=== PATIENT | female | born 1960 | race Caucasian/White ===

== ENCOUNTER 2016-08-23 17:11 | Emergency (ER) | payer BC ==
[~2016-08-23] VITALS: Ht 160 cm; Wt 105.2 kg
[2016-08-23 18:05] LABS: BASO # 0.1 x10^3/uL (0.0-0.2); BASO % 1 % (0-3); EOS % 2 % (0-3); HEMATOCRIT 37.8 % (36.0-47.0); HEMOGLOBIN 12.5 g/dL (12.0-15.5); LYMPH # 2.7 x10^3/uL (1.0-4.8); LYMPH % 27 % (24-48); MEAN CORPUSCULAR HEMOGLOBIN 30 pg (25-35); MEAN CORPUSCULAR HGB CONC 33 g/dL (31-37); MEAN CORPUSCULAR VOLUME 91 fL (79-100); MONO % 8 % (0-9); NEUT % 63 % (31-73); PLATELET COUNT 231 x10^3/uL (140-400); RED BLOOD COUNT 4.17 x10^6/uL (3.50-5.40); RED CELL DISTRIBUTION WIDTH 13.6 % (11.5-14.5); WHITE BLOOD COUNT 9.9 x10^3/uL (4.0-11.0)
[2016-08-23 18:18] LABS: CALCIUM 8.6 mg/dL (8.5-10.1); CREATININE 0.5 mg/dL (0.6-1.0); GFR 128.6; POTASSIUM 4.2 mmol/L (3.5-5.1)
[2016-08-23 18:25] LABS: ALBUMIN 3.4 g/dL (3.4-5.0); DIRECT BILIRUBIN 0.1 mg/dL (0.0-0.2); MAGNESIUM 1.9 mg/dL (1.8-2.4); TOTAL BILIRUBIN 0.3 mg/dL (0.2-1.0); TOTAL PROTEIN 6.7 g/dL (6.4-8.2)
[2016-08-23 18:30] LABS: CKMB MASS 1.2 ng/mL (0.0-3.6)
[2016-08-23 19:22] VITALS: BP 123/71
--- NOTE | 2016-08-23 19:23 | PHYS DOC ---
Past Medical History Past Medical History: Migraines Additional Past Medical Histor: Sleep apnea, vertigo Additional Past Surgical Histo: L Foot Lisfranc. Bilateral knee meniscus, tummy tuck, breast implants Alcohol Use: Occasionally Drug Use: None Adult General Chief Complaint Chief Complaint: SHORTNESS OF BREATH HPI HPI Patient is a 56 year old female who states for about 2 weeks she has noticed some exertional dyspnea and also has had some "swelling" of her hands and feet, also her abdomen feels bloated and seems to be larger. Patient has noticed the swelling when at the pool and also when she was walking up a big [place] at [place]. She's had no fever or chills, no cough, no chest pain. She's never had problems with swelling before, has never taken a diuretic. Patient has no chronic medical problems. She does state she has gained about 15 pounds over the last few months. 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 Review of Systems Review of Systems Constitutional: Denies fever or chills [] Eyes: Denies change in visual acuity, redness, or eye pain [] HENT: Denies nasal congestion or sore throat [] Respiratory: Denies cough or shortness of breath [] Cardiovascular: Denies chest pain GI: Denies abdominal pain, nausea, vomiting, bloody stools or diarrhea [] : Denies dysuria or hematuria [] Musculoskeletal: Denies back pain or joint pain [] Integument: Denies rash or skin lesions [] Neurologic: Denies headache, focal weakness or sensory changes [] Allergies Allergies Allergies Coded Allergies Type Severity Reaction Last Updated Verified No Known Drug Allergies 08/23/16 No Physical Exam Physical Exam Constitutional: Well developed, well nourished, no acute distress, non-toxic appearance. Alert, mentating normally, no dyspnea. HENT: Normocephalic, atraumatic, bilateral external ears normal, nose normal. [] Eyes: conjunctiva normal, no discharge. [] Neck: Normal range of motion, no stridor. [] Cardiovascular:Heart rate regular rhythm, no murmur [] Lungs & Thorax: Bilateral breath sounds clear to auscultation [] Abdomen: Obese, nondistended, Bowel sounds normal, soft, no tenderness, no masses, no pulsatile masses. [] Skin: Warm, dry, no erythema, no rash. [] Extremities: No tenderness, no cyanosis, no clubbing, ROM intact, no edema. There may be slight puffiness of the hands and feet but there is no pitting edema whatsoever. Neurologic: Alert and oriented X 3, normal motor function, normal sensory function, no focal deficits noted. Current Patient Data Vital Signs Vital Signs Date Time Temp Pulse Resp B/P (MAP) Pulse Ox O2 Delivery O2 Flow Rate FiO2 08/23/16 19:22 81 123/71 (88) 97 Room Air 08/23/16 18:22 21 08/23/16 17:17 98.8 98.0 98.8 Lab Values Laboratory Tests Test 08/23/16 17:55 White Blood Count 9.9 x10^3/uL (4.0-11.0) Red Blood Count 4.17 x10^6/uL (3.50-5.40) Hemoglobin 12.5 g/dL (12.0-15.5) Hematocrit 37.8 % (36.0-47.0) Mean Corpuscular Volume 91 fL (79-100) Mean Corpuscular Hemoglobin 30 pg (25-35) Mean Corpuscular Hemoglobin Concent 33 g/dL (31-37) Red Cell Distribution Width 13.6 % (11.5-14.5) Platelet Count 231 x10^3/uL (140-400) Neutrophils (%) (Auto) 63 % (31-73) Lymphocytes (%) (Auto) 27 % (24-48) Monocytes (%) (Auto) 8 % (0-9) Eosinophils (%) (Auto) 2 % (0-3) Basophils (%) (Auto) 1 % (0-3) Neutrophils # (Auto) 6.2 x10^3uL (1.8-7.7) Lymphocytes # (Auto) 2.7 x10^3/uL (1.0-4.8) Monocytes # (Auto) 0.7 x10^3/uL (0.0-1.1) Eosinophils # (Auto) 0.2 x10^3/uL (0.0-0.7) Basophils # (Auto) 0.1 x10^3/uL (0.0-0.2) D-Dimer (Mere) 0.31 ug/mlFEU (0.00-0.50) Sodium Level 143 mmol/L (136-145) Potassium Level 4.2 mmol/L (3.5-5.1) Chloride Level 106 mmol/L (98-107) Carbon Dioxide Level 26 mmol/L (21-32) Anion Gap 11 (6-14) Blood Urea Nitrogen 13 mg/dL (7-20) Creatinine 0.5 mg/dL (0.6-1.0) L Estimated GFR (Cockcroft-Gault) 128.6 Glucose Level 78 mg/dL (70-99) Calcium Level 8.6 mg/dL (8.5-10.1) Magnesium Level 1.9 mg/dL (1.8-2.4) Total Bilirubin 0.3 mg/dL (0.2-1.0) Direct Bilirubin 0.1 mg/dL (0.0-0.2) Aspartate Amino Transferase (AST) 21 U/L (15-37) Alanine Aminotransferase (ALT) 29 U/L (14-59) Alkaline Phosphatase 131 U/L (46-116) H Creatine Kinase 131 U/L (26-192) Creatine Kinase MB (Mass) 1.2 ng/mL (0.0-3.6) Creatine Kinase MB Relative Index 0.9 % (0-4) Troponin I Quantitative < 0.017 ng/mL (0.000-0.055) SD-Udt-M-Type Natriuretic Peptide 43 pg/mL (0-124) Total Protein 6.7 g/dL (6.4-8.2) Albumin 3.4 g/dL (3.4-5.0) Laboratory Tests 08/23/16 17:55 Laboratory Tests 08/23/16 17:55 EKG EKG 12-lead EKG read by me. Sinus rhythm. Heart rate 90. There are no acute ST or T wave changes indicative of ischemia or infarction. No STEMI. 1724[] Radiology/Procedures Radiology/Procedures Two-view chest x-ray read by me. Heart size is normal. Lung pierce are clear. No pulmonary edema. [] Course & Med Decision Making Course & Med Decision Making Pertinent Labs and Imaging studies reviewed. (See chart for details) 56-year-old email the concern of "swelling" and also believes her abdomen is somewhat swollen or bloated, although she does admit to a recent 15 pound weight gain. Her exam reveals that her hands and feet may be a bit puffy but there is no pitting edema. Labs, EKG, chest x-ray unremarkable. I reassured the patient and we discussed weight loss, follow-up with her doctor if problems continue, see instructions for plan. [] Dragon Disclaimer Dragon Disclaimer This electronic medical record was generated, in whole or in part, using a voice recognition dictation system. Departure Departure Impression: Primary Impression: Dyspnea Disposition: HOME, SELF-CARE Condition: STABLE Referrals: LESLEY MONDRAGON MD (PCP) Additional Instructions: As we discussed, labs and x-ray were normal today. This is reassuring and I don' t believe you need any further testing at this time. As we discussed, weight loss might help many of your symptoms. Be sure to follow-up with your physician if you continue to have symptoms or problems. NADYA RHOADES MD Aug 23, 2016 19:23
--- NOTE | 2016-08-24 06:56 | EKG ---
[facility] [address] [place] [address] Test Date: 2016-08-23 Test Time: 17:24:18 Pat Name: AMANDA CHUNG Department: Room: Gender: F Change Of Address Clerk: : 1960 Requested By: NADYA RHOADES Order Number: [id number] Reading MD: Measurements Intervals [place] Rate: 90 P: 50 DC: 144 QRS: -34 QRSD: 78 T: 39 QT: 326 QTc: 402 Interpretive Statements SINUS RHYTHM ABNORMAL LEFT AXIS DEVIATION R-S TRANSITION ZONE IN V LEADS DISPLACED TO THE LEFT INCOMPLETE RIGHT BUNDLE BRANCH BLOCK QRS(T) CONTOUR ABNORMALITY CONSISTENT WITH INFERIOR INFARCT PROBABLY OLD ABNORMAL ECG RI6.01 No previous ECG available for comparison
--- NOTE | 2016-08-24 08:16 | RAD ---
Indication change in mental status. Suspect CVA. Protocol study. PA and lateral views of the chest were obtained. No prior imaging of the chest is available. The heart and pulmonary vessels appear normal. The lungs are clear. There is no pleural fluid or pneumothorax. Visualized bony structures appear grossly intact. IMPRESSION: No acute or focal process is seen in the chest
== END 2016-08-23 19:33 | disposition home or self-care (01) ==
LOC: ER 17:11
DX: R06.00 Dyspnea, unspecified (principal); G43.909 Migraine, unspecified, not intractable, without status migrainosus; G47.30 Sleep apnea, unspecified; Z98.82 Breast implant status
CPT/HCPCS: 36415; 71020; 80048; 80076; 82553; 83735; 83880; 84484; 85027; 85379; 93005; 99285-25

== ENCOUNTER → 2016-09-05 | Outpatient (CLI) | payer BC ==
[2016-08-23 19:22] VITALS: BP 123/71
[2016-09-05 10:58] LABS: CHOLESTEROL/HDL RATIO 5.1
[2016-09-05 11:05] LABS: FREE T4 0.74 ng/dL (0.76-1.46)
== END | disposition home or self-care (01) ==
LOC: LAB 10:25
PROVIDERS: ATTEND Internal Medicine
DX: E78.00 Pure hypercholesterolemia, unspecified (principal); R63.5 Abnormal weight gain
CPT/HCPCS: 36415; 80061; 84439; 84443

== ENCOUNTER → 2016-09-07 | Outpatient (CLI) | payer BC ==
[2016-08-23 19:22] VITALS: BP 123/71
--- NOTE | 2016-09-07 18:23 | PCVCIMAG ---
APPROVED REPORT Study performed: 09/07/2016 15:58:45 EXAM: Comprehensive 2D, Doppler, and color-flow Echocardiogram Patient Location: Echo lab Status: routine Other Information Study Quality: Fair Indications Abnormal ECG Dyspnea 2D Dimensions IVSd: 8.86 (7-11mm)LVOT Diam: 19.68 (18-24mm) LVDd: 41.43 mm PWd: 9.07 (7-11mm)Ascending Ao: 32.79 (22-36mm) LVDs: 20.99 (25-40mm) Left Atrium: 35.02 (27-40mm) Aortic Root: 25.40 mm LV Single Plane 4CH: 63.33 % Correia's LVEF: 81.09 % Biplane EF: 63.0 % Volumes Left Atrial Volume (Systole) Single Plane 4CH: 32.73 mLSingle Plane 2CH: 24.31 mL Biplane LA Volume: 29.00 mLLA ESV Index: 14.00 mL/m2 Aortic Valve AoV Peak Ernesto.: 1.64 m/s AO Peak Gr.: 10.73 mmHgLVOT Max P.71 mmHg LVOT Max V: 1.09 m/s [place] Vmax: 2.03 cm2 Mitral Valve E/A Ratio: 1.2 MV Decel. Time: 81.77 ms MV E Max Ernesto.: 0.87 m/s MV A Ernesto.: 0.74 m/s IVRT: 72.66 ms TDI E/Lateral E': 21.75E/Medial E': 17.40 Medial E' Ernesto.: 0.05 m/s Lateral E' Ernesto.: 0.04 m/s Pulmonary Valve PV Peak Ernesto.: 18.00 m/sPV Peak Gr.: 5.09 mmHg Pulmonary Vein P Vein S: 0.77 m/sP Vein A: 0.30 m/s P Vein D: 0.33 m/sP Vein A Dur.: 103.8 msec P Vein S/D Ratio: 2.33 Tricuspid Valve TR Peak Ernesto.: 1.66 m/s TR Peak Gr.: 11.07 mmHg TV Vmax: 0.57 m/sPA Pressure: 18.00 mmHg Left Ventricle The left ventricle is normal size. There is normal LV segmental wall motion. There is normal left ventricular wall thickness. Left ventricular systolic function is normal. The left ventricular ejection fraction is within the normal range. LVEF is 60-65%. The left ventricular diastolic function is normal. Right Ventricle Right ventricle is grossly normal in size.The RV free wall is mildly thickened The right ventricular systolic function is normal. Atria The left atrium size is normal. The right atrium size is normal. Aortic Valve Aortic valve is probably trileaflet . No aortic regurgitation is present. There is no aortic valvular stenosis. Mitral Valve The mitral valve is normal in structure. There is no mitral valve regurgitation noted. No evidence of mitral valve stenosis. Tricuspid Valve The tricuspid valve is normal in structure. There is no tricuspid valve regurgitation noted. Pulmonic Valve The pulmonary valve is normal in structure. There is no pulmonic valvular regurgitation. Great Vessels The aortic root is normal in size. The ascending aorta is normal in size. IVC is normal in size and collapses with >50% inspiration Pericardium There is no pericardial effusion. There is no pleural effusion. <Conclusion> There is normal left ventricular wall thickness. Left ventricular systolic function is normal. The left ventricular ejection fraction is within the normal range. LVEF is 60-65%. The left ventricular diastolic function is normal. Right ventricle is grossly normal in size.The RV free wall is mildly thickened The left atrium size is normal. Aortic valve is probably trileaflet . There is no aortic valvular stenosis. There is no mitral valve regurgitation noted. There is no pericardial effusion. There is no tricuspid valve regurgitation noted.
== END | disposition home or self-care (01) ==
LOC: PCVCIMAG 16:20
PROVIDERS: ATTEND Internal Medicine Cardiovascular Disease
DX: R94.31 Abnormal electrocardiogram [ECG] [EKG] (principal); E78.00 Pure hypercholesterolemia, unspecified; I47.2 Ventricular tachycardia; K21.9 Gastro-esophageal reflux disease without esophagitis; F90.9 Attention-deficit hyperactivity disorder, unspecified type; Z82.49 Family history of ischemic heart disease and other diseases of the circulatory system; Z72.0 Tobacco use
CPT/HCPCS: 80061; 93005; 93306; G0463

== ENCOUNTER → 2016-10-26 | Outpatient (CLI) | payer BC ==
--- NOTE | 2016-10-26 17:21 | PCVCIMAG ---
APPROVED REPORT Exam: Stress Echocardiogram Indication: Hyperlipidemia, Hypertension, Dyspnea Stress Nurse: Lashon Pepe RN Status: routine Ht: 5 ft 3 in Rhythm: NSR Procedure The patient underwent an Exercise Stress Test using the Arik Protocol. Blood pressure, heart rate, and EKG were monitored. An Echocardiogram was performed by telemetry technician in four stages in quad fashion. At peak stress, four selected images were obtained and placed side by side with resting images for comparison. Stress Test Details Stress Test: Exercise stress testing was performed using a Arik protocol. HR Resting HR: 73 bpmMax Heart Rate (APMHR): 166 bpm Max HR Achieved: 151 bpmTarget HR (85% APMHR): 141 bpm % of APMHR: 90 HR response to stress: Normal HR response to stress BP Resting BP: 110/70 mmHg Max BP: 164/70 mmHg ECG Resting ECG: Sinus Rhythm Stress ECG: Sinus Rhythm Clinical Reason for Termination: Maximal effort Exercise duration: 7 min 43 sec Highest Stage Achieved: Stage 3: 3.4 mph at 14% grade. Exercise capacity: 10.10 METs Overall Exercise Capacity for Age: Good Pre-Stress Echo The resting Echocardiogram showed normal left ventricular contractility with an estimated Ejection Fraction of about 55-60%. Normal wall motion in all segments on baseline images. Post-Stress Echo The stress Echocardiogram showed normal left ventricular contractility with an estimated Ejection Fraction of about 60-65%. Normal augmentation of wall motion in all segments on post stress images. Clinical No clinical or ECG evidence for ischemia. Conclusion Clinical Response: Non-ischemic Exercise Capacity: Average Stress ECG Response: Non-ischemic Stress Echo Images: Non-ischemic The left ventricle is normal in size and wall thickness in both the rest and stress images. Other Information Study Quality: Good <Conclusion> The left ventricle is normal in size and wall thickness in both the rest and stress images.
== END | disposition home or self-care (01) ==
LOC: PCVCIMAG 14:45
PROVIDERS: ATTEND Internal Medicine Cardiovascular Disease
DX: I10 Essential (primary) hypertension (principal); E78.5 Hyperlipidemia, unspecified; R93.1 Abnormal findings on diagnostic imaging of heart and coronary circulation; I47.2 Ventricular tachycardia; Z82.49 Family history of ischemic heart disease and other diseases of the circulatory system
CPT/HCPCS: 93325; 93351

== ENCOUNTER → 2017-05-29 | Outpatient (CLI) | payer OTHER ==
[2017-05-29] MEDS: GADOBUTROL 10 MMOL/10 ML VIAL IV (14:11)
== END | disposition home or self-care (01) ==
LOC: KCIC MRI 12:52
DX: H74.8X3 Other specified disorders of middle ear and mastoid, bilateral (principal)
CPT/HCPCS: 70553; 93880; A9585

== ENCOUNTER → 2018-09-16 | Outpatient (CLI) | payer OTHER ==
[~2018-09-16] MED LIST: ATOR10TA60 PO; BYSTOLIC5 MG PO; CLON0.5T11 PO; DEXT30TA2 PO; LEXAPRO20 MG PO; OMEP20TA8 PO
--- NOTE | 2018-09-16 15:03 | PCVCIMAG ---
APPROVED REPORT Study performed: 09/16/2018 10:52:26 Exam: Stress Echocardiogram Indication: pre-op clearance, abn EKG, htn, hlp, fam hx CAD Patient Location: Echo lab Stress Nurse: Lashon Pepe RN Status: routine Ht: 5 ft 3 in HR: 96 bpm BP: 144/100 mmHg Rhythm: NSR Procedure The patient underwent an Exercise Stress Test using the Arik Protocol. Blood pressure, heart rate, and EKG were monitored. An Echocardiogram was performed by hydroelectric plant technician in four stages in quad fashion. At peak stress, four selected images were obtained and placed side by side with resting images for comparison. Stress Test Details Stress Test: Exercise stress testing was performed using a Arik protocol. HR Resting HR: 96 bpmMax Heart Rate (APMHR): 164 bpm Max HR Achieved: 151 bpmTarget HR (85% APMHR): 139 bpm % of APMHR: 92 Recovery HR: 95 bpm HR response to stress: Normal HR response to stress BP Resting BP: 144/100 mmHg Max BP: 178/88 mmHg Recovery BP: 148/86 mmHg BP response to stress: Normal blood pressure response to stress. ECG Resting ECG: Sinus Rhythm, nonspecific ST-T abnormalities Stress ECG: Sinus Rhythm, nonspecific ST-T abnormalities ST Change: Normal Arrhythmia: None Recovery ECG: Sinus Rhythm, nonspecific ST-T abnormalities Recovery ST Change: Normal Recovery Arrhythmia: None Clinical Reason for Termination: Maximal effort, Dyspnea Stress Symptoms: Dyspnea Exercise duration: 6 min sec Highest Stage Achieved: Stage 2: 2.5 mph at 12% grade. Exercise capacity: 7 METs Overall Exercise Capacity for Age: Normal Scale: Sedentary Angina Score: None Pre-Stress Echo The resting Echocardiogram showed normal left ventricular contractility with an estimated Ejection Fraction of about >55%. Normal wall motion in all segments on baseline images. Post-Stress Echo The stress Echocardiogram showed normal left ventricular contractility with an estimated Ejection Fraction of about 65%. Normal augmentation of wall motion in all segments on post stress images. Clinical No clinical or ECG evidence for ischemia. Conclusion Clinical Response: Non-ischemic Exercise Capacity: Average Stress ECG Response: Non-ischemic Stress Echo Images: Non-ischemic The left ventricle is normal in size and wall thickness in both the rest and stress images. Other Information Study Quality: Adequate <Conclusion> The left ventricle is normal in size and wall thickness in both the rest and stress images.
== END | disposition home or self-care (01) ==
LOC: PCVCIMAG 10:52
PROVIDERS: ATTEND Internal Medicine Cardiovascular Disease
DX: Z01.818 Encounter for other preprocedural examination (principal); I10 Essential (primary) hypertension; E78.5 Hyperlipidemia, unspecified; I47.2 Ventricular tachycardia; E78.00 Pure hypercholesterolemia, unspecified; F41.8 Other specified anxiety disorders; Z82.49 Family history of ischemic heart disease and other diseases of the circulatory system; Z87.891 Personal history of nicotine dependence
CPT/HCPCS: 93325; 93351

== ENCOUNTER → 2018-10-17 | Outpatient (CLI) | payer OTHER ==
[~2018-10-17] MED LIST changes: +CLON-77 PO; -CLON0.5T11 PO
== END | disposition home or self-care (01) ==
LOC: SPEC 11:24
PROVIDERS: ATTEND Nurse Practitioner Women's Health
DX: N95.0 Postmenopausal bleeding (principal)
CPT/HCPCS: 88175

== ENCOUNTER → 2018-10-24 | Outpatient (CLI) | payer OTHER ==
--- NOTE | 2018-10-24 17:25 | RAD ---
Examination: Ultrasound pelvis HISTORY: History of post menopausal bleeding COMPARISON: None available. Findings: The uterus measures 7.1 x 5.0 x 3.4 cm . The endometrium measures 4 mm in thickness. The right and left ovaries could not be visualized. The uterus appears retroverted. Few nabothian cysts identified.There is a 2.5 cm echogenicity identified in the fundus likely fibroid. IMPRESSION: 1. 2.5 cm fundal fibroid identified. 2. Right and left ovaries are not visualized. Electronically signed by: Issac Gerber MD (10/24/2018 5:23 PM) [place] [id number]
== END | disposition home or self-care (01) ==
LOC: US 15:07
PROVIDERS: ATTEND Nurse Practitioner Women's Health
DX: N85.4 Malposition of uterus (principal); D25.9 Leiomyoma of uterus, unspecified; N95.0 Postmenopausal bleeding
CPT/HCPCS: 76830; 76856

== ENCOUNTER → 2019-11-03 | Outpatient (CLI) | payer OTHER ==
[~2019-11-03] MED LIST changes: +CHOL100017 PO; +CRESTOR5 MG PO; +PARO20TA99 PO
[2019-11-03 09:28] LABS: BASO % 1 % (0-3); EOS # 0.1 x10^3/uL (0.0-0.7); EOS % 2 % (0-3); HEMATOCRIT 40.4 % (36.0-47.0); HEMOGLOBIN 13.6 g/dL (12.0-15.5); LYMPH # 2.3 x10^3/uL (1.0-4.8); LYMPH % 37 % (24-48); MEAN CORPUSCULAR HEMOGLOBIN 30 pg (25-35); MEAN CORPUSCULAR HGB CONC 34 g/dL (31-37); MEAN CORPUSCULAR VOLUME 90 fL (79-100); MONO # 0.5 x10^3/uL (0.0-1.1); MONO % 8 % (0-9); NEUT # 3.2 x10^3/uL (1.8-7.7); NEUT % 53 % (31-73); PLATELET COUNT 218 x10^3/uL (140-400); RED BLOOD COUNT 4.51 x10^6/uL (3.50-5.40); RED CELL DISTRIBUTION WIDTH 13.4 % (11.5-14.5); WHITE BLOOD COUNT 6.1 x10^3/uL (4.0-11.0)
[2019-11-03 09:45] LABS: ALBUMIN 3.6 g/dL (3.4-5.0); C-REACTIVE PROTEIN 3.6 mg/L (0-3.3); CALCIUM 9.1 mg/dL (8.5-10.1); CREATININE 0.7 mg/dL (0.6-1.0); GFR 86.2; POTASSIUM 4.3 mmol/L (3.5-5.1); PROTHROMBIN TIME PATIENT 12.3 SEC (11.7-14.0)
--- NOTE | 2019-11-03 16:03 | RAD ---
EXAM: Chest, 2 views. HISTORY: Preoperative evaluation. COMPARISON: None. FINDINGS: 2 views of the chest are obtained. There is no infiltrate, pleural effusion or pneumothorax. The heart is normal in size. IMPRESSION: No acute pulmonary finding. Electronically signed by: Es Chau MD (11/03/2019 4:00 PM) [id number]
[2019-11-04 01:08] LABS: HEMOGLOBIN A1C 5.5 % (4.8-5.6)
== END | disposition home or self-care (01) ==
LOC: SURGPAT 12:51
PROVIDERS: ATTEND Orthopaedic Surgery
DX: Z01.812 Encounter for preprocedural laboratory examination (principal); M17.12 Unilateral primary osteoarthritis, left knee; Z87.891 Personal history of nicotine dependence; Z96.652 Presence of left artificial knee joint
CPT/HCPCS: 36415; 71046; 80048; 82040; 82306; 83036; 85025; 85610; 85730; 86140; 87641

== ENCOUNTER → 2019-11-21 | Outpatient (CLI) | payer OTHER | LOC: LAB 14:23 | PROVIDERS: ATTEND Orthopaedic Surgery | DX: Z01.812 Encounter for preprocedural laboratory examination (principal); Z20.828 Contact with and (suspected) exposure to other viral communicable diseases | CPT/HCPCS: U0003-CS ==

== ENCOUNTER 2019-11-25 06:10 | Observation (INO) | payer OTHER ==
[~2019-11-25] VITALS: Ht 157.5 cm; Wt 112.0 kg
[2019-11-25] VITALS (10 sets, daily range): BP systolic 90–154; BP diastolic 49–81
[~2019-11-25 06:10] MED LIST changes: +ACETAMINOPHEN 500 MG TABLET PO ONE; +CELECOXIB 100 MG CAPSULE. PO ONE; +MORPHINE SULFATE 5 MG, KETOROLAC 30MG VIAL 30 MG, ROPIVacaine 0.5% PF 60 ML, EPINEPHrin... INT ART ONE; +TRANEXAMIC ACID 1,000 MG in IV NS 50ML -- 1ST BAG INJ ONE
[2019-11-25] MEDS ORDERED: LIDOCAINE 2% PF 5 ML VIAL. ONE (06:56)
[2019-11-25] MEDS ORDERED: DEXAMETHASONE SOD PHOS 4 MG/ML VIAL ONE (06:56)
[2019-11-25] MEDS ORDERED: ONDANSETRON PF 4 MG/2 ML VIAL. ONE (06:56)
[2019-11-25] MEDS ORDERED: PROPOFOL 10 MG/ML (20ML) VIAL. IV ONE (06:56)
[2019-11-25] MEDS ORDERED: fentaNYL PF VIAL 100 MCG/2 ML VIAL ONE ×2 (06:57→10:27)
[2019-11-25] MEDS ORDERED: PROCHLORPERAZINE 10 MG/2 ML VIAL. IV PRN (07:00)
[2019-11-25] MEDS ORDERED: ONDANSETRON PF 4 MG/2 ML VIAL. IV PRN (07:00)
[2019-11-25] MEDS ORDERED: HYDROmorphone 2 MG/ML VIAL IV PRN (07:00)
[2019-11-25] MEDS ORDERED: IV RINGERS,LACTATED 1000ML 1,000 ML IV SCH (07:00)
[2019-11-25] MEDS ORDERED: fentaNYL PF VIAL 100 MCG/2 ML VIAL IV PRN (07:00)
[2019-11-25] MEDS ORDERED: MORPHINE SULFATE 2 MG/ML VIAL. IV PRN (07:00)
[2019-11-25] MEDS ORDERED: TOBRAMYCIN POWDER 1.2 GM VIAL. ONE (07:07)
[2019-11-25] MEDS ORDERED: VANCOMYCIN 1 GM VIAL. ONE ×2 (07:07→10:34)
[2019-11-25] MEDS ORDERED: TRANEXAMIC ACID 1,000 MG in IV NS 50ML -- 2ND BAG INJ ONE (08:00)
[2019-11-25] MEDS ORDERED: ePHEDrine PF IN SALINE 50 MG/10 ML SYRINGE. IV ONE (08:28)
[2019-11-25] MEDS ORDERED: GLYCOPYRROLATE 1 MG/5 ML VIAL. ONE (08:28)
[2019-11-25] MEDS: CHOLECALCIFEROL (VITAMIN D3) 5,000 UNIT CAPSULE PO SCH (09:00)
[2019-11-25] MEDS ORDERED: SEVOFLURANE > 120 MINUTES. IH ONE (09:05)
--- NOTE | 2019-11-25 10:24 | PDOC4 ---
Operative Note Operative Note Date of Procedure: November 25, 2019 Pre-Op Diagnosis: Unilateral primary osteoarthritis, left knee. M17.12 Post-Op Diagnosis: same Procedure: left total knee arthroplasty with patella resurfacing, robotic assisted, CPT 91347 Surgeon: Sakina Ying MD Platinumsmith: AFSHAN Reddy Anesthesia: General EBL: 100 mL Specimens Obtained: left knee bone and soft tissue Complications: none Drains: Hemovac plus pain catheter Tourniquet time: 74 Minutes Tourniquet Pressure: 300 mm Hg Indications for Procedure: Knee arthritis pain, affecting quality of life, unrelieved by nonoperative management Findings: Severe osteoarthritis with bone on bone contact medially with full thickness cartilage loss in the patellofemoral and lateral compartments Implants: Preciado [employer] Nephew Journey II Total Knee System, Size 3 left bicruciate stabilized Journey II BCS Oxinium femoral component, size 3 left Journey nonporous tibial baseplate, size 3-4 12 mm left Journey II BCS constrained articular insert, 29 mm oval Marlin II resurfacing patellar component Procedure in Detail: The patient was identified in the preoperative holding area, and the correct left lower extremity was marked by me. The patient was taken to the operating room where the patient was anesthetized by the Department of Anesthesia. Preoperative antibiotics were given intravenously. Tranexamic acid 1 g was given intravenously for intraoperative hemostasis. A "time-out" procedure was performed. The patient was positioned supine on the operative table with a tourniquet on the upper left thigh. A left hip bump and heel bump were attached to the operating table for later intraoperative positioning. The left lower limb was thoroughly scrubbed, then sterile Chloraprep solution was applied, and the limb was draped in sterile fashion. The operating team wore exhaust ventilated hoods with [employer] Personal Protection Toga Zippered Peel-Away protection system. An impervious stockinet and an adhesive drape were used such that the skin was entirely covered. The limb was exsanguinated with an Esmarch bandage, and the tourniquet was inflated. A midline skin incision was made with a scalpel using the patella and tibial tubercle as landmarks. Electrocautery was used for hemostasis. My janitorial assistant used rake retractors and a laparotomy sponge. A medial parapatellar arthrotomy incision was used with extension into the distal quadriceps tendon. The patella was retracted laterally and Hohmann retractors were now used by my janitorial assistant. Excess synovium, the menisci, and the cruciate ligaments were resected sharply. A periarticular multimodal ropivacaine anesthetic injection was used in the suprapatellar pouch and distal quadriceps muscle. The patella was everted and exposed. The patella thickness was measured with a caliper, and then cut freehand with a saw, using caliper measurements to assess the resection. The lateral retinaculum was partially released from the lateral patella using electrocautery. Rongeurs were used to make sure there were no remaining exposed patellar osteophytes medially or laterally. The patella was sized, and then drilled for an oval three-peg patella component. The tibial tracker array for the NAVIO system was applied to the tibial crest four finger breadths below the tibial tubercle, using percutaneous incisions and bicortical pins. The femoral tracker array was applied outside of the original incision using two separate stab incisions using bicortical pins. Checkpoint verification pins were applied to the femur and tibia. Using the point probe, the medial and lateral malleoli were localized and the locations were stored. The center of the tibia was noted at the anterior cruciate ligament insertion and stored. The center of the femur was marked at the intersection of Whitesidess line with the transepicondylar axis. The hip center calculation was performed with range of motion of the hip. The femur neutral position was identified, and simulated weightbearing was performed with axial compression on the foot. Range of motion without stress was performed and the data collected. Range of motion with valgus stress, and range of motion with varus stress data collection was also performed. Rotational references include the Whitesidess line, and the trans-epicondylar axis. The femoral articular surface was now mapped in 3 dimensions using the point probe and digital data collected. The tibial condyle articular surfaces and cortical edges were mapped in 3 dimensions using the point probe including the medial and lateral tibial plateau. Implant planning was now performed on-screen with manipulation of the implant sizes, cut thicknesses and gaps, component rotation, component flexion/extension and component varus/valgus until satisfactory ligament balance, alignment and stability of the knee was expected throughout the range of motion. My janitorial assistant held a Hohmann retractor, a medial Z-retractor, and an Army-Meacham retractor to protect the medial and lateral collateral ligaments, the patellar tendon, the skin and the other soft tissues. The point probe was used to confirm the location of the checkpoint verification pins. The distal femoral surface was now prepared using the Anspach jc with footpedal, and the NAVIO handpiece for bone removal to the previously planned distal femoral resection. The crosshairs at the pin locations were marked by using a mallet and the point probe for definitive location. A 5-in-1 Journey II cutting guide was then applied and the position was checked with the virtual gabriel wing from the NAVIO to ensure proper placement as the pins were applied. The posterior, anterior, and all chamfer cuts were made with the oscillating saw. Excess bone was removed with an osteotome and lico eurs. The tibial cutting guide was applied, positioned using the NAVIO virtual gabriel wing, and secured to the upper tibia using three pins at the previously planned location. The virtual gabriel wing was used to confirm the resection depth, slope and coronal alignment. The upper tibia was cut made with an oscillating saw. My janitorial assistant held Hohmann retractors and a posterior cruciate ligament retractor to protect the medial and lateral collateral ligaments, the patellar tendon, the skin, the peroneal nerve and the other soft tissues. The upper tibia was sized with a trial baseplate. The posterior compartment was cleared of osteophytes and loose bodies. The periarticular anesthetic injection was used in the posterior compartment. The box cut for a posterior stabilized component was made. A preliminary reduction was performed with a trial femur, trial tibial baseplate and trial polyethylene. At this point it appeared that the femoral component was slightly too large for this patient and initially had been sized trial size 4. This seemed to cause some patellar tracking issues as well. I removed the trial components, revised the NAVIO plan to a size 3 femur, repeated the distal femoral resection with the bur, and applied a size three 5-in-1 cutting guide, verified the position with the virtual gabriel wing, and recut the distal femur. Revised the box cut for the trochlear cam component slightly more lateral which improved the patellar tracking. I then reapplied all of the trial components. The NAVIO system was used to confirm range of motion, and postoperative stressed gap assessment. No additional releases were required. The stability was assessed using different thicknesses of tibial articular surface to find satisfactory stability and good range of motion. The rotation of the tibial component was marked on the upper tibia. Final trial reduction was now performed verifying patella tracking and tibiofemoral stability and alignment which was much better with the size 3 femur than it had been with the size 4 femur. The bone pins and tracker arrays were removed, and the checkpoint verification pins were removed. The tibia preparation was completed with a drill, saw, and fin punch at the previously noted rotation. The final implants were verified and opened. Outer gloves were changed by the operating team. Betadine lavage was used. The bone cuts were irrigated with saline using the [employer] InterPulse device and then dried with suction and laparotomy sponges. Two packages of Preciado + Nephew Rally HV bone cement were mixed in powdered form with Vancomycin 1gm and Tobramycin 1.2 gm, and then vacuum-mixed with the monomer, and placed into a cement gun. The cut surfaces of the bone were thoroughly dried with suction and with laparotomy sponges for cement interdigitation. The final components were cemented into place. The knee was kept at full extension while the cement hardened, and excess cement was removed. Tranexamic acid 1 g was redosed intravenously for additional intraoperative hemostasis. The tourniquet was released, and electrocautery was used for hemostasis. A final periarticular anesthetic injection was used for pain relief. The bone pin sites on the tibial crest were closed with #3-0 Nylon sutures. A final check of [id number] and stability was made, and the polyethylene implant final size was chosen. The polyethylene implant was secured to the tibial baseplate, and the knee was reduced a final time and range of motion and stability was confirmed. The initial polyethylene component was the typical no nconstrained XLPE component, and up until that point there had been good medial stability as verified by the NAVIO and by intra-operative stress examination. I verified the stability after the component had been inserted, and it appeared that the medial collateral ligament was now more lax than it had been throughout the rest of the case. I removed the XLPE component and placed a constrained component which normalized the medial laxity and normalized the varus valgus stability. Thorough irrigation was used. A pain catheter, and a 15 Fr Hemovac were inserted. Topical Vancomycin 1 gm was used during the closure. The arthrotomy was closed with interrupted [id number] #1 Vicryl suture. The arthrotomy incision was then run with #1 STRATAFIX Symmetric PDS Plus Knotless suture. The subcutaneous tissues were approximated initially with #2-0 Vicryl inverted interrupted sutures by my janitorial assistant. Next the subcuticular layer was approximated in a running fashion with #3-0 STRATAFIX suture by my janitorial assistant. The skin incision was then covered and reinforced by my janitorial assistant with Acticoat, followed by a BROOKE single use negative pressure wound therapy dressing Soft roll and an Brian wrap were applied. Needle and sponge counts were correct. There were no apparent complications. The patient returned to the recovery room in stable condition. SAKINA YING MD Nov 25, 2019 10:24
[2019-11-25] MEDS ORDERED: fentaNYL PF VIAL 100 MCG/2 ML VIAL IVP PRN ×2 (10:30)
[2019-11-25] MEDS ORDERED: MORPHINE SULFATE 2 MG/ML VIAL. IVP PRN (10:30)
[2019-11-25] MEDS ORDERED: ZOLPIDEM 5 MG TABLET. PO PRN (10:30)
[2019-11-25] MEDS ORDERED: 0.9 % SODIUM CHLORIDE 10 ML DISP.SYRIN. IV PRN (10:30)
[2019-11-25] MEDS ORDERED: PROCHLORPERAZINE 5 MG TABLET. PO PRN (10:30)
[2019-11-25] MEDS ORDERED: DEXTROSE 50% 25 GM / 50ML DISP.SYRIN. IV PRN (10:30)
[2019-11-25] MEDS ORDERED: METOCLOPRAMIDE HCL 10 MG/2 ML VIAL. IVP PRN (10:30)
[2019-11-25] MEDS ORDERED: diphenhydrAMINE 50 MG/ML VIAL IVP PRN (10:30)
[2019-11-25] MEDS: fentaNYL PF VIAL 100 MCG/2 ML VIAL IV PRN ×2 (10:30→10:46)
[2019-11-25] MEDS ORDERED: CALCIUM CARBONATE 500 MG TAB.CHEW PO PRN (10:30)
--- NOTE | 2019-11-25 10:50 | RAD ---
EXAM: 2 views left knee DATE: 11/25/2019 10:24 AM INDICATION: Reason: POST OP LT KNEE ARTHROPLASTY / Spl. Instructions: / History: COMPARISON: No Prior FINDINGS/ IMPRESSION: 1. Changes of left total knee arthroplasty are now seen, in good alignment without definite hardware complication or fracture. 2. Expected postoperative soft tissue changes are seen including drain. Electronically signed by: Chino Wakefield MD (11/25/2019 10:47 AM) [id number]
[2019-11-25] MEDS: METOPROLOL TART IMMED RELEASE 25 MG TABLET. PO SCH ×2 (11:00→21:00)
[2019-11-25] MEDS: clonazePAM 0.5 MG TABLET PO SCH ×2 (11:00→21:20)
--- NOTE | 2019-11-25 11:10 | NUR ---
Arrived to unit by bed from PACU. Awakens easily but falls back to sleep. No c/o pain at this time. Left knee dressing is d/i with BROOKE, IAC and Hemovac drain. O2 at 2l per n/c sating 100%. IVF's intact and infusing. WILLARD and SCD on right leg. Oriented to room and controls. Side rails up x's 2 with call light in reach. Spouse at bedside. Cont. monitor.
[2019-11-25] MEDS: ONDANSETRON ODT 4 MG TAB.RAPDIS. PO SCH ×2 (12:00→18:00)
[2019-11-25] MEDS: ONDANSETRON PF 4 MG/2 ML VIAL. IVP SCH ×2 (12:00→18:00)
--- NOTE | 2019-11-25 13:17 | PDOC1 ---
History and Physical Date of Admission Date of Admission DATE: 11/25/19 TIME: 13:12 Identification/Chief Complaint Chief Complaint left knee osteoarthritis Source Source: Chart review, Patient History of Present Illness History of Present Illness Bina is an established patient here in follow up for her bilateral knee pain. She describes severe bilateral knee pain that makes vacuum painful. She is unable to go walking with her grandchildren due to knee pain. She took NSAID's and had adverse side effects so she doesn't take any medications. Patient has failed steroid injections and viscosupplementation. She is here today for elective left total knee arthroplasty. Past Medical History Past Medical History GERD. ADHD. Obesity. Anxiety. Hypercholesterolemia. Depression. Non-toxic uninodular goiter. Past Surgical History Past Surgical History bilateral meniscus tummy tuck Family History Family History: No Significant Social History Smoke: Quit ALCOHOL: none Current Medications Current Medications Current Medications Morphine Sulfate 5 mg/Ketorolac Tromethamine 30 mg/Ropivacaine 60 ml/Epinephrine HCl 0.5 mg/Sodium Chloride 100 ml @ 100 mls/hr 1X ONCE INT ART Last administered on 11/25/19at 08:03; Start 11/25/19 at 06:00; Stop 11/25/19 at 06 :59; Status DC Ondansetron HCl (Zofran) 4 mg PRN Q6HRS PRN IV NAUSEA/VOMITING; Start 11/25/19 at 07:00; Stop 11/26/19 at 06:59 Fentanyl Citrate (Fentanyl 2ml Vial) 25 mcg PRN Q5MIN PRN IV MILD PAIN 1-3; Start 11/25/19 at 07:00; Stop 11/26/19 at 06:59 Fentanyl Citrate (Fentanyl 2ml Vial) 50 mcg PRN Q5MIN PRN IV MODERATE TO SEVERE PAIN Last administered on 11/25/19at 10:46; Start 11/25/19 at 07:00; Stop 11/26/19 at 06:59 Morphine Sulfate (Morphine Sulfate) 1 mg PRN Q10MIN PRN IV SEVERE PAIN 7-10; Start 11/25/19 at 07:00; Stop 11/26/19 at 06:59 Ringer's Solution 1,000 ml @ 30 mls/hr Q24H IV Last administered on 11/25/19at 06:54; Start 11/25/19 at 07:00; Stop 11/25/19 at 18:59 Hydromorphone HCl (Dilaudid) 0.5 mg PRN Q10MIN PRN IV SEV PAIN, Second choice; Start 11/25/19 at 07:00; Stop 11/26/19 at 06:59 Prochlorperazine Edisylate (Compazine) 5 mg PACU PRN PRN IV NAUSEA, MRX1; Start 11/25/19 at 07:00; Stop 11/26/19 at 06:59 Celecoxib (CeleBREX) 400 mg ONCE ONCE PO Last administered on 11/25/19at 06:54; Start 11/25/19 at 06:00; Stop 11/25/19 at 06:01; Status DC Cefazolin Sodium/ Dextrose 50 ml @ 100 mls/hr 1X ONCE IV Last administered on 11/25/19at 07:25; Start 11/25/19 at 06:00; Stop 11/25/19 at 06:29; Status DC Acetaminophen (Tylenol) 1,000 mg ONCE ONCE PO Last administered on 11/25/19at 06:55; Start 11/25/19 at 06:00; Stop 11/25/19 at 06:01; Status DC Tranexamic Acid 1000 mg/Sodium Chloride 60 ml @ 60 mls/hr 1X PERIOP ONCE INJ Last administered on 11/25/19at 07:50; Start 11/25/19 at 06:00; Stop 11/25/19 at 06:59; Status DC Tranexamic Acid 1000 mg/Sodium Chloride 60 ml @ 60 mls/hr 1X PERIOP ONCE INJ Last administered on 11/25/19at 09:15; Start 11/25/19 at 08:00; Stop 11/25/19 at 08:59; Status DC Propofol (Diprivan) 200 mg STK-MED ONCE IV ; Start 11/25/19 at 06:56; Stop 11/25/19 at 06:57; Status DC Dexamethasone Sodium Phosphate (Decadron) 4 mg STK-MED ONCE .ROUTE ; Start 11/25/19 at 06:56; Stop 11/25/19 at 06:57; Status DC Lidocaine HCl (Lidocaine Pf 2% Vial) 5 ml STK-MED ONCE .ROUTE ; Start 11/25/19 at 06:56; Stop 11/25/19 at 06:57; Status DC Ondansetron HCl (Zofran) 4 mg STK-MED ONCE .ROUTE ; Start 11/25/19 at 06:56; Stop 11/25/19 at 06:57; Status DC Fentanyl Citrate (Fentanyl 2ml Vial) 100 mcg STK-MED ONCE .ROUTE ; Start 11/25/19 at 06:57; Stop 11/25/19 at 06:57; Status DC Vancomycin HCl (Vancomycin) 1 gm STK-MED ONCE .ROUTE Last administered on 11/25/19at 08:03; Start 11/25/19 at 07:07; Stop 11/25/19 at 07:07; Status DC Tobramycin Sulfate (Tobramycin Powder) 1.2 gm STK-MED ONCE .ROUTE Last administered on 11/25/19at 08:03; Start 11/25/19 at 07:07; Stop 11/25/19 at 07:07; Status DC Glycopyrrolate (Robinul) 1 mg STK-MED ONCE .ROUTE ; Start 11/25/19 at 08:28; Stop 11/25/19 at 08:28; Status DC Ephedrine Sulfate (ePHEDrine PF IN SALINE SYRINGE) 50 mg STK-MED ONCE IV ; Start 11/25/19 at 08:28; Stop 11/25/19 at 08:28; Status DC Sevoflurane (Ultane) 90 ml STK-MED ONCE IH ; Start 11/25/19 at 09:05; Stop 11/25/19 at 09:05; Status DC Fentanyl Citrate (Fentanyl 2ml Vial) 100 mcg STK-MED ONCE .ROUTE ; Start 11/25/19 at 10:27; Stop 11/25/19 at 10:28; Status DC Morphine Sulfate (Morphine Sulfate) 2 mg PRN Q1HR PRN IVP PAIN; Start 11/25/19 at 10:30 Fentanyl Citrate (Fentanyl 2ml Vial) 25 mcg PRN Q1HR PRN IVP PAIN, 2nd CHOICE; Start 11/25/19 at 10:30 Diphenhydramine HCl (Benadryl) 25 mg PRN Q6HRS PRN IVP ITCHING; Start 11/25/19 at 10:30 Multivitamins (Thera M Plus) 1 tab DAILY PO ; Start 11/26/19 at 09:00 Senna/Docusate Sodium (Senna Plus) 1 tab DAILY PO ; Start 11/25/19 at 12:00 Sodium Chloride 1,000 ml @ 40 mls/hr Q24H IV ; Start 11/25/19 at 10:24 Prochlorperazine Maleate (Compazine) 10 mg PRN Q4HRS PRN PO Nausea/vomiting, 2nd choice; Start 11/25/19 at 10:30 Metoclopramide HCl (Reglan Vial) 10 mg PRN Q4HRS PRN IVP NAUSEA/VOMITING, 3rd CHOICE; Start 11/25/19 at 10:30 Magnesium Hydroxide (Milk Of Magnesia) 2,400 mg 1X PRN PRN PO CONSTIPATION; Start 11/26/19 at 06:00; Stop 11/27/19 at 05:59 Bisacodyl (Dulcolax Supp) 10 mg 1X PRN PRN [place] CONSTIPATION; Start 11/26/19 at 16:00; Stop 11/27/19 at 15:59 Zolpidem Tartrate (Ambien) 5 mg PRN QHS PRN PO INSOMNIA, MAY REPEAT IN 1HR; Start 11/25/19 at 10:30 Calcium Carbonate/ Glycine (Tums) 500 mg PRN QID PRN PO INDIGESTION; Start 11/25/19 at 10:30 Morphine Sulfate (Morphine Sulfate) 4 mg PRN Q1HR PRN IVP PAIN; Start 11/25/19 at 10:30 Ketorolac Tromethamine 30 mg/Bupivacaine HCl 20 ml/ Epinephrine HCl 0.5 mg/ Miscellaneous 43 ml @ 258 mls/hr Q12H INT ART ; Start 11/25/19 at 18:00; Stop 11/26/19 at 06:09 Sodium Chloride (Normal Saline Flush) 10 ml QSHIFT PRN IV AFTER MEDS AND BLOOD DRAWS; Start 11/25/19 at 10:30 Fentanyl Citrate (Fentanyl 2ml Vial) 50 mcg PRN Q1HR PRN IVP PAIN, 2nd CHOICE; Start 11/25/19 at 10:30 Ondansetron HCl (Zofran) 4 mg Q6HRS IVP ; Start 11/25/19 at 12:00; Stop 11/26/19 at 06:01 Ondansetron HCl (Zofran Odt) 4 mg Q6HRS PO ; Start 11/25/19 at 12:00; Stop 11/26/19 at 06:01 Ondansetron HCl (Zofran) 4 mg PRN Q6HRS PRN IVP Nausea/vomiting, 1st choice; Start 11/26/19 at 12:00 Ondansetron HCl (Zofran Odt) 4 mg PRN Q6HRS PRN PO Nausea/vomiting, 1st choice; Start 11/26/19 at 12:00 Dextrose (Dextrose 50%-Water Syringe) 12.5 gm PRN Q15MIN PRN IV SEE COMMENTS; Start 11/25/19 at 10:30 Cefazolin Sodium/ Dextrose 50 ml @ 100 mls/hr Q6H IV ; Start 11/25/19 at 13:30; Stop 11/26/19 at 01:59 Aspirin (Ecotrin) 325 mg BID PO ; Start 11/25/19 at 21:00 Oxycodone/ Acetaminophen (Percocet 5/325) 1 tab PRN Q4HRS PRN PO MODERATE PAIN; Start 11/25/19 at 10:30 Celecoxib (CeleBREX) 200 mg DAILY PO ; Start 11/26/19 at 09:00; Stop 12/26/19 at 08:59 Clonazepam (KlonoPIN) 0.5 mg BID PO ; Start 11/25/19 at 11:00 Paroxetine HCl (Paxil) 20 mg DAILY PO ; Start 11/25/19 at 12:00 Non-Formulary Medication (Dextroamphetamine/ Amphetamine (Adderall 30 Mg Tablet)) 30 mg DAILY PO ; Start 11/26/19 at 09:00; Status UNV Metoprolol Tartrate (Lopressor) 25 mg BID PO ; Start 11/25/19 at 11:00 Atorvastatin Calcium (Lipitor) 40 mg QHS PO ; Start 11/25/19 at 21:00 Vitamin D (Vitamin D3) 5,000 unit DAILY PO ; Start 11/25/19 at 09:00 Vancomycin HCl (Vancomycin) 1 gm STK-MED ONCE .ROUTE Last administered on 11/25/19at 08:03; Start 11/25/19 at 10:34; Stop 11/25/19 at 10:35; Status DC Oxycodone/ Acetaminophen (Percocet 5/325) 2 tab PRN Q4HRS PRN PO SEVERE PAIN; Start 11/25/19 at 11:00 Active Scripts Active Reported Vitamin D3 (Cholecalciferol (Vitamin D3)) 250 Mcg Capsule 250 Mcg PO DAILY Crestor (Rosuvastatin Calcium) 5 Mg Tablet 10 Mg PO HS Paxil (Paroxetine Hcl) 20 Mg Tablet 20 Mg PO DAILY Clonazepam (Clonazepam) 0.5 Mg Tablet 0.5 Mg PO BID Bystolic (Nebivolol) 5 Mg Tablet 5 Mg PO DAILY Adderall 30 Mg Tablet (Dextroamphetamine/Amphetamine) 30 Mg Tablet 30 Mg PO DAILY Allergies Allergies: Coded Allergies: No Known Drug Allergies (Unverified , 11/25/19) ROS Review of System OPHTHALMOLOGY: Blurred vision none. Double vision denies. Change in vision none. ENT: Hearing loss none. Change in voice denies. Rhinorrhea none. CARDIOLOGY: Palpitations none. Shortness of breath denies. Chest pain denies. CONSTITUTIONAL: Fever denies. Chills denies. Weight gain denies. Weakness none. weight loss denies. Fatigue none. GASTROENTEROLOGY: Diarrhea denies. Vomiting none. Dysphagia none. UROLOGY: Voiding normally yes. Hematuria none. MUSCULOSKELETAL: Chronic back or neck pain denies. Swelling of the feet, hands, ankles and /or legs Bilateral Knee swelling and left foot swelling.. Joint pain Bilateral Knee pain, Left back heel pain.. DERMATOLOGY: Rash denies. Lumps none. NEUROLOGY: Dizziness/lightheadedness denies. Double vision, temporary blindness denies. Tingling/numbness none. PSYCHOLOGY: Change in mood or personality admits. Memory loss none. ENDOCRINOLOGY: Obesity denies. Fatigue none. Weight loss none. HEMATOLOGY/LYMPH: Hepatitis denies. Enlarged lymph nodes denies. Physical Exam General: Alert, Cooperative, No acute distress HEENT: Atraumatic Lungs: Normal air movement Heart: RRR Abdomen: Soft Extremities: No cyanosis, No edema, Normal pulses, Other (LEFT knee shows a mildly antalgic gait. There is varus alignment. No masses. No detectable effusion. Tenderness on the joint lines. Range of motion is 5-115 degrees. There is crepitus with range of motion, and pain at the extremes of motion. The knee is stable to varus and valgus stress without subluxation or laxity. Muscle strength is slightly weak for the quadriceps 4+/5 which may be due to pain or avoidance, and does not seem neurogenic, and the muscle tone and bulk is slightly decreased. The hamstring strength is 5/5. The skin is normal with no scars, rashes, lesions or ulcers. Light touch sensation is intact. No edema and no varicosities. Dorsalis pedis pulse is intact and capillary refill is normal ) Neuro: Normal speech, Sensation intact Psych/Mental Status: Mood NL Vitals Vitals Vital Signs Date Time Temp Pulse Resp B/P (MAP) Pulse Ox O2 Delivery O2 Flow Rate FiO2 11/25/19 11:20 Nasal Cannula 2.0 11/25/19 11:15 98.8 74 20 103/55 (71) 98 98.8 Images Images [facility] [address] [place] [address] IMAGING REPORT Signed PATIENT: BINA CHUNG ACCOUNT: [id number] : 1960 LOCATION: [facility] AGE: 59 SEX: F EXAM STATUS: PRE CLI ORD. PHYSICIAN: SAKINA TOLEDO MD REASON: PROCEDURE: KNEE BILAT 2V EXAM: KNEE BILAT 2V, KNEE STANDING BILAT AP. HISTORY: Bilateral knee pain. COMPARISON: None. FINDINGS: No fractures are identified bilaterally. The medial compartmental joint spaces are moderately to severely narrowed on the left greater than right. There is bilateral mild varus angulation and lateral subluxation of the tibias. There is moderate osteophytosis along all 3 compartments. There are small to moderate joint effusions bilaterally. IMPRESSION: 1. Moderate to severe medial compartment predominant osteoarthritis on the left greater than right with varus angulation. Electronically signed by: Marycarmen Faulkner MD (09/22/2019 4:22 PM) [id number] DICTATED and SIGNED BY: YEMI FAULKNER MD DATE: 09/22/19 1622 VTE Prophylaxis Ordered VTE Prophylaxis Devices: Yes VTE Pharmacological Prophylaxi: Yes Assessment/Plan Assessment/Plan I offered and recommended left total knee arthroplasty. I do not recommend bilateral simultaneous arthroplasty for most patients. We discussed the potential risks of infection, neurovascular injury, fracture, bleeding, blood clots, malalignment, need for revision surgery, or other potential surgical or anesthetic complications. I recommended the robotic NAVIO instrumentation and we discussed my reasoning. We also discussed postoperative treatment and expectations including dental antibiotic prophylaxis and residual numbness over the knee. All of her questions were answered and she desires to proceed with total knee replacement. She is here today for elective left total knee replacement with robotic assistance. Justifications for Admission Other Justification SAKINA TOLEDO MD Nov 25, 2019 13:17
[2019-11-25] MEDS: PARoxetine 20 MG TABLET PO SCH (16:04)
[2019-11-25] MEDS: SENNOSIDES/DOCUSATE 8.6/50MG TABLET. PO SCH (16:04)
[2019-11-25] MEDS: oxyCODONE/APAP 5/325 1 TAB TABLET PO PRN ×2 (16:05→21:21)
[2019-11-25] MEDS: KETOROLAC 30MG VIAL 30 MG, BUPIVACAINE MPF 0.25% 20 ML, EPINEPHrine 0.5 MG in TOTAL VOL... INT ART SCH (18:00)
[2019-11-25 18:07] LABS: PROTHROMBIN TIME PATIENT 12.6 SEC (11.7-14.0)
[2019-11-25] MEDS: IV NORMAL SALINE 1000ML BAG 1,000 ML IV SCH (20:00)
[2019-11-25] MEDS: ASPIRIN ENTERIC COATED 325 MG TABLET.DR. PO SCH (21:20)
[2019-11-25] MEDS: ATORVASTATIN CALCIUM 40 MG TABLET. PO SCH (21:21)
[2019-11-26] MEDS: oxyCODONE/APAP 5/325 1 TAB TABLET PO PRN ×5 (01:38→20:02)
[2019-11-26 02:42] VITALS: BP 91/48
[2019-11-26] MEDS ORDERED: MAGNESIUM HYDROXIDE 2,400 MG/30 ML ORAL.SUSP. PO PRN (06:00)
[2019-11-26] MEDS: ONDANSETRON PF 4 MG/2 ML VIAL. IVP SCH ×2 (06:00)
[2019-11-26] MEDS: KETOROLAC 30MG VIAL 30 MG, BUPIVACAINE MPF 0.25% 20 ML, EPINEPHrine 0.5 MG in TOTAL VOL... INT ART SCH (06:23)
[2019-11-26 06:24] VITALS: BP 90/44
[2019-11-26] MEDS: ONDANSETRON ODT 4 MG TAB.RAPDIS. PO SCH ×2 (06:24)
[2019-11-26 07:13] LABS: HEMATOCRIT 34.6 % (36.0-47.0); HEMOGLOBIN 11.5 g/dL (12.0-15.5)
--- NOTE | 2019-11-26 07:48 | PDOC ---
ORTHO PROGRESS NOTES DATE: 11/26/19 TIME: 07:45 Subjective Patient states that her pain during the night was only a 3 but suddenly this morning it shot up to a 7. Post-op Day: 1 Procedure Left total knee arthroplasty with patellar resurfacing robotic assisted. Vitals Vital Signs Date Time Temp Pulse Resp B/P (MAP) Pulse Ox O2 Delivery O2 Flow Rate FiO2 11/26/19 07:06 18 11/26/19 06:24 98.1 73 90/44 (59) 98 Room Air 98.1 11/25/19 13:00 2.0 Labs Laboratory Tests Test 11/25/19 17:00 Prothrombin Time 12.6 SEC (11.7-14.0) Prothromb Time International Ratio 1.0 (0.8-1.1) Laboratory Tests Test 11/25/19 17:00 Prothrombin Time 12.6 SEC (11.7-14.0) Prothromb Time International Ratio 1.0 (0.8-1.1) Notes Awake and alert sitting up in bed. Assessment and Plan Postop day #1 status post left total knee arthroplasty with patellar resurfacing robotic assisted. Neurovascularly intact distally on left lower extremity. She is somewhat hypotensive this morning and will be reassessed by the RN. Fluid bolus if needed. Dressing is dry and intact. SAYDA REYES APRN Nov 26, 2019 07:48
[2019-11-26 08:03] LABS: PROTHROMBIN TIME PATIENT 13.6 SEC (11.7-14.0)
[2019-11-26] MEDS: ASPIRIN ENTERIC COATED 325 MG TABLET.DR. PO SCH ×2 (08:56→20:01)
[2019-11-26] MEDS: SENNOSIDES/DOCUSATE 8.6/50MG TABLET. PO SCH (08:56)
[2019-11-26] MEDS: PARoxetine 20 MG TABLET PO SCH (08:56)
[2019-11-26] MEDS: MULTIVITAMIN with MINERAL TABLET. PO SCH (08:56)
[2019-11-26] MEDS: MORPHINE SULFATE 4 MG/ML VIAL. IVP PRN (08:56)
[2019-11-26] MEDS: CHOLECALCIFEROL (VITAMIN D3) 5,000 UNIT CAPSULE PO SCH (08:57)
[2019-11-26] MEDS: CELECOXIB 100 MG CAPSULE. PO SCH (08:57)
[2019-11-26] MEDS ORDERED: NON FORMULARY ITEM (Dextroamphetamine/Amphetamine (Adderall 30 Mg Tablet) 30 MG) PO SCH (09:00)
[2019-11-26] MEDS: METOPROLOL TART IMMED RELEASE 25 MG TABLET. PO SCH ×2 (09:00→20:02)
[2019-11-26] MEDS: clonazePAM 0.5 MG TABLET PO SCH ×2 (09:01→20:01)
[2019-11-26] MEDS: IV NORMAL SALINE 1000ML BAG 1,000 ML IV SCH (10:24)
--- NOTE | 2019-11-26 10:29 | NUR ---
Bina was very painful this am. she was an 3 most of the night but this am she shot up to an "8". she was medicated with morphine at beginning of shift. continues to rate her pain an "8" gave her morphine 4 and 1 Percocet. she is rating her pain "5"at this time. IAc became detached. removed barbara wrap and IAC (blue tip intact) removed; tolerated well. Hemovac remains in place until this afternoon. ivf dc'd -blood pressure is up to112 /53
[2019-11-26] MEDS ORDERED: ONDANSETRON PF 4 MG/2 ML VIAL. IVP PRN (12:00)
[2019-11-26] MEDS ORDERED: ONDANSETRON ODT 4 MG TAB.RAPDIS. PO PRN (12:00)
[2019-11-26] MEDS ORDERED: BISACODYL 10 MG SUPP.RECT. PR PRN (16:00)
[2019-11-26 18:16] VITALS: BP 105/50
--- NOTE | 2019-11-26 19:49 | NUR ---
roya has had a better evening. she attended both rehab sessions and tolerated well. she is rating her pain 2-3. she did have mod/large amount of drainage from hemovac site; pressure dressing applied
[2019-11-26] MEDS: ATORVASTATIN CALCIUM 40 MG TABLET. PO SCH (20:01)
[2019-11-27] MEDS: oxyCODONE/APAP 5/325 1 TAB TABLET PO PRN ×4 (04:04→18:45)
[2019-11-27 05:41] LABS: HEMATOCRIT 32.8 % (36.0-47.0); HEMOGLOBIN 10.9 g/dL (12.0-15.5)
[2019-11-27 06:10] VITALS: BP 95/53
[2019-11-27] MEDS: MULTIVITAMIN with MINERAL TABLET. PO SCH (08:43)
[2019-11-27] MEDS: SENNOSIDES/DOCUSATE 8.6/50MG TABLET. PO SCH (08:43)
[2019-11-27] MEDS: ASPIRIN ENTERIC COATED 325 MG TABLET.DR. PO SCH ×2 (08:43→21:05)
[2019-11-27] MEDS: CELECOXIB 100 MG CAPSULE. PO SCH (08:43)
[2019-11-27] MEDS: clonazePAM 0.5 MG TABLET PO SCH ×2 (08:43→21:06)
[2019-11-27] MEDS: PARoxetine 20 MG TABLET PO SCH (08:43)
[2019-11-27] MEDS: MORPHINE SULFATE 4 MG/ML VIAL. IVP PRN (08:45)
[2019-11-27] MEDS: METOPROLOL TART IMMED RELEASE 25 MG TABLET. PO SCH ×2 (09:00→21:00)
[2019-11-27] MEDS: CHOLECALCIFEROL (VITAMIN D3) 5,000 UNIT CAPSULE PO SCH (13:13)
--- NOTE | 2019-11-27 14:09 | NUR ---
Bina woke up with pain a strong "8" this am; medicated with morphine. shewas able to go to rehab; tolerated fair
[2019-11-27 19:07] VITALS: BP 94/52
--- NOTE | 2019-11-27 19:09 | PATHOLOGY ---
[facility] Accession Number: [id number] . 01 Material submitted: . knee - LEFT KNEE BONE AND TISSUE. Modifiers: left . 01 Clinical history: . LEFT KNEE OA . 02 Diagnosis: Segments of bone and soft tissue, left total knee arthroplasty: - Degenerative arthritis. . (JPM:mm; 11/27/2019) M 11/27/2019 1604 Local . 02 Electronically signed: . Yaw Castillo MD, Pathologist NPI- [id number] . 01 Gross description: . The specimen is received in formalin, labeled "Bina Thao, left knee bone and tissue". Received are multiple segments of bone, including the tibial plateau, admixed with soft tissue measuring 8.8 x 0.7 x 3.2 cm in aggregate dimensions. Meniscus is present. The articular surfaces are smooth to granular in appearance with evidence of eburnation. The specimen is submitted representatively in cassette A1, following decalcification. (CAA; 11/26/2019) QAC/QA 11/26/2019 1348 Local . 02 Pathologist provided ICD-10: M17.12 . 02 CPT . 829151, 530888 Specimen Comment: A courtesy copy of this report has been sent to [phone] Specimen Comment: [id number] Specimen Comment: Report sent to / DR DIAZ Performed at: 01 [facility] [address] [facility] [address], [place] [id number] MD Maximo Lucio MD Phone: [phone] Performed at: 02 [facility] [address] [place], [place] [id number] MD Yaw Castillo MD Phone: [phone]
--- NOTE | 2019-11-27 19:22 | PDOC ---
PROGRESS NOTES Date of Service DATE: 11/27/19 TIME: 19:20 Subjective Subjective Doing well, but still requiring IV pain meds for pain, in addition to oral meds. Objective Vital Signs Vital Signs Date Time Temp Pulse Resp B/P (MAP) Pulse Ox O2 Delivery O2 Flow Rate FiO2 11/27/19 19:07 97.5 75 18 94/52 (66) 93 Room Air 97.5 11/25/19 13:00 2.0 Physical Exam BROOKE dressing working. BROOKE has spots of bloody drainage. Hemovac and pain catheter have been removed. Calf soft and NT. Homans neg. Able to DF and plantarflex foot with no evidence of neurovascular injury nor compartment syndrome. No blisters. Minimal erythema. Moderate swelling as expected. Labs Laboratory Tests Test 11/26/19 06:55 11/27/19 04:55 Hemoglobin 11.5 g/dL (12.0-15.5) 10.9 g/dL (12.0-15.5) Hematocrit 34.6 % (36.0-47.0) 32.8 % (36.0-47.0) Mean Corpuscular Hemoglobin Concent 33 g/dL (31-37) 33 g/dL (31-37) Prothrombin Time 13.6 SEC (11.7-14.0) 13.0 SEC (11.7-14.0) Prothromb Time International Ratio 1.1 (0.8-1.1) 1.0 (0.8-1.1) Laboratory Tests Test 11/27/19 04:55 Hemoglobin 10.9 g/dL (12.0-15.5) Hematocrit 32.8 % (36.0-47.0) Mean Corpuscular Hemoglobin Concent 33 g/dL (31-37) Prothrombin Time 13.0 SEC (11.7-14.0) Prothromb Time International Ratio 1.0 (0.8-1.1) Imaging Postop x-rays and report reviewed by me. Satisfactory TKA without apparent complications. [facility] [address] [place] [address] IMAGING REPORT Signed PATIENT: AMANDA CHUNG ACCOUNT: [id number] : 1960 LOCATION: [address] [place] [address] AGE: 59 SEX: F EXAM STATUS: ADM IN ORD. PHYSICIAN: SAKINA TOLEDO MD REASON: POST OP LT KNEE ARTHROPLASTY PROCEDURE: KNEE LEFT 2V EXAM: 2 views left knee DATE: 11/25/2019 10:24 AM INDICATION: Reason: POST OP LT KNEE ARTHROPLASTY / Spl. Instructions: / History: COMPARISON: No Prior FINDINGS/ IMPRESSION: 1. Changes of left total knee arthroplasty are now seen, in good alignment without definite hardware complication or fracture. 2. Expected postoperative soft tissue changes are seen including drain. Electronically signed by: Chino Wakefield MD (11/25/2019 10:47 AM) [id number] DICTATED and SIGNED BY: CHINO WAKEFIELD MD DATE: 11/25/19 1047 Assessment Assessment POD 2 after TKA Plan Plan of Care Needs to stay in hospital for pain control at this time. Continue DVT prophylaxis and PT. Discharge planning. Justicifation of Admission Dx: Justifications for Admission: Justification of Admission Dx: Yes SAKINA TOLEDO MD Nov 27, 2019 19:22
[2019-11-27] MEDS: ATORVASTATIN CALCIUM 40 MG TABLET. PO SCH (21:06)
[2019-11-28] MEDS: oxyCODONE/APAP 5/325 1 TAB TABLET PO PRN ×3 (02:09→13:23)
[2019-11-28 05:40] VITALS: BP 99/54
[2019-11-28 06:25] LABS: HEMATOCRIT 34.3 % (36.0-47.0); HEMOGLOBIN 11.5 g/dL (12.0-15.5)
[2019-11-28] MEDS: SENNOSIDES/DOCUSATE 8.6/50MG TABLET. PO SCH (08:30)
[2019-11-28] MEDS: ASPIRIN ENTERIC COATED 325 MG TABLET.DR. PO SCH (08:30)
[2019-11-28] MEDS: PARoxetine 20 MG TABLET PO SCH (08:30)
[2019-11-28] MEDS: CELECOXIB 100 MG CAPSULE. PO SCH (08:30)
[2019-11-28] MEDS: MULTIVITAMIN with MINERAL TABLET. PO SCH (08:30)
[2019-11-28] MEDS: CHOLECALCIFEROL (VITAMIN D3) 5,000 UNIT CAPSULE PO SCH (08:30)
[2019-11-28] MEDS: clonazePAM 0.5 MG TABLET PO SCH (08:30)
[2019-11-28] MEDS: METOPROLOL TART IMMED RELEASE 25 MG TABLET. PO SCH (09:00)
--- NOTE | 2019-11-28 09:00 | NUR ---
Anxious to go home today. Rating pain between 3 and 4. P.O pain med given. Cont. monitor.
[2019-11-28 14:38] VITALS: BP 95/55
--- NOTE | 2019-11-28 14:57 | PDOC ---
PROGRESS NOTES Date of Service DATE: 11/28/19 TIME: 14:56 Subjective Subjective Doing better today. No longer taking IV pain medicines. Completed physical therapy. Objective Vital Signs Vital Signs Date Time Temp Pulse Resp B/P (MAP) Pulse Ox O2 Delivery O2 Flow Rate FiO2 11/28/19 14:38 98.7 77 20 95/55 (68) 95 Room Air 98.7 11/25/19 13:00 2.0 Physical Exam Still with slight spotty drainage on the Dolores dressing. Calf is soft and nontender. Homans' sign negative. Labs Laboratory Tests Test 11/27/19 04:55 11/28/19 05:20 11/28/19 05:25 Hemoglobin 10.9 g/dL (12.0-15.5) 11.5 g/dL (12.0-15.5) Hematocrit 32.8 % (36.0-47.0) 34.3 % (36.0-47.0) Mean Corpuscular Hemoglobin Concent 33 g/dL (31-37) 33 g/dL (31-37) Prothrombin Time 13.0 SEC (11.7-14.0) 13.0 SEC (11.7-14.0) Prothromb Time International Ratio 1.0 (0.8-1.1) 1.0 (0.8-1.1) Laboratory Tests Test 11/28/19 05:20 11/28/19 05:25 Prothrombin Time 13.0 SEC (11.7-14.0) Prothromb Time International Ratio 1.0 (0.8-1.1) Hemoglobin 11.5 g/dL (12.0-15.5) Hematocrit 34.3 % (36.0-47.0) Mean Corpuscular Hemoglobin Concent 33 g/dL (31-37) Assessment Assessment POD#3 TKA Plan Plan of Senior Living today. Outpatient physical therapy. Continue aspirin twice a day for DVT prophylaxis. Follow-up on Sunday. Justicifation of Admission Dx: Justifications for Admission: Justification of Admission Dx: Yes SAKINA TOLEDO MD Nov 28, 2019 14:57
--- NOTE | 2019-11-28 15:02 | PDOC3 ---
Discharge Summary Visit Information Date of Admission: Nov 25, 2019 Date of Discharge: Nov 28, 2019 Admitting Diagnosis Comment: Osteoarthritis left knee Aftercare after left total knee arthroplasty Final Diagnosis As above Brief Hospital Course Allergies Allergies Coded Allergies Type Severity Reaction Last Updated Verified No Known Drug Allergies 11/25/19 No Vital Signs Vital Signs Date Time Temp Pulse Resp B/P (MAP) Pulse Ox O2 Delivery O2 Flow Rate FiO2 11/28/19 14:38 98.7 77 20 95/55 (68) 95 Room Air 98.7 Lab Results Laboratory Tests Test 11/27/19 04:55 11/28/19 05:20 11/28/19 05:25 Hemoglobin 10.9 g/dL (12.0-15.5) 11.5 g/dL (12.0-15.5) Hematocrit 32.8 % (36.0-47.0) 34.3 % (36.0-47.0) Mean Corpuscular Hemoglobin Concent 33 g/dL (31-37) 33 g/dL (31-37) Prothrombin Time 13.0 SEC (11.7-14.0) 13.0 SEC (11.7-14.0) Prothromb Time International Ratio 1.0 (0.8-1.1) 1.0 (0.8-1.1) Laboratory Tests Test 11/28/19 05:20 11/28/19 05:25 Prothrombin Time 13.0 SEC (11.7-14.0) Prothromb Time International Ratio 1.0 (0.8-1.1) Hemoglobin 11.5 g/dL (12.0-15.5) Hematocrit 34.3 % (36.0-47.0) Mean Corpuscular Hemoglobin Concent 33 g/dL (31-37) Brief Hospital Course 59 year old who presented with knee osteoarthritis, for elective total knee arthroplasty. The patient underwent total knee arthroplasty under general anes thesia the day of admission. Perioperative antibiotics and DVT prophylaxis were used. Postoperatively physical therapy and case management were consulted. The patient progressed and is stable for discharge. Discharge Information Condition at Discharge: Stable Follow Up: Weeks Disposition/Orders: D/C to Home Scheduled Cholecalciferol (Vitamin D3) (Vitamin D3), 250 MCG PO DAILY, (Reported) Clonazepam (Clonazepam ), 0.5 MG PO BID, (Reported) Dextroamphetamine/Amphetamine (Adderall 30 Mg Tablet), 30 MG PO DAILY, (Reported) Nebivolol Hcl (Bystolic), 5 MG PO DAILY, (Reported) Paroxetine Hcl (Paxil), 20 MG PO DAILY, (Reported) Rosuvastatin Calcium (Crestor), 10 MG PO HS, (Reported) Patient Instructions Patient Instructions Continue to weight bearing as tolerated with walker. Keep BROOKE dressing intact and dry. Follow up with Dr. Ying's office Sunday. Call for appointment unless already scheduled. Continue enteric coated aspirin 325 mg by mouth twice a day for 30 days to prevent blood clots. Justicifation of Admission Dx: Justifications for Admission: Justification of Admission Dx: Yes SAKINA YING MD Nov 28, 2019 15:02
--- NOTE | 2019-11-28 16:00 | NUR ---
Discharge instructions given and prescriptions sent via electronic to pharmacy. Answered questions and concerns. Verbalized understanding. Discharged home accompanied by spouse.
== END 2019-11-28 16:00 | disposition home or self-care (01) ==
LOC: SURG 06:10 → 4 SOUTHEST 10:24
PROVIDERS: ADMIT Orthopaedic Surgery; ATTEND Orthopaedic Surgery
DX: M17.12 Unilateral primary osteoarthritis, left knee (principal); E78.00 Pure hypercholesterolemia, unspecified
CPT/HCPCS: 27447; 36415; 73560; 85014; 85018; 85610; 86850; 86900; 86901; 96365; 96366; 96375; 96376; 97116; 97150; 97162; 97166; 97530; 97535; A4461; A7015; C1713; C1769; G0378; G0379; J0171; J0690; J1100; J1885; J2270; J2704; J2795; J3010; J3260; J3370; J3490; J7030; J7120; J2405

== ENCOUNTER → 2020-03-16 | Outpatient (CLI) | payer OTHER ==
[2019-11-27 09:00] VITALS: BP 95/53
[~2020-03-16] MED LIST changes: -ACETAMINOPHEN 500 MG TABLET PO ONE; -CELECOXIB 100 MG CAPSULE. PO ONE; -MORPHINE SULFATE 5 MG, KETOROLAC 30MG VIAL 30 MG, ROPIVacaine 0.5% PF 60 ML, EPINEPHrin... INT ART ONE; -TRANEXAMIC ACID 1,000 MG in IV NS 50ML -- 1ST BAG INJ ONE
[2020-03-16 14:12] LABS: BASO % 1 % (0-3); EOS # 0.1 x10^3/uL (0.0-0.7); EOS % 1 % (0-3); HEMATOCRIT 42.2 % (36.0-47.0); HEMOGLOBIN 14.1 g/dL (12.0-15.5); LYMPH % 28 % (24-48); MEAN CORPUSCULAR HEMOGLOBIN 30 pg (25-35); MEAN CORPUSCULAR HGB CONC 33 g/dL (31-37); MEAN CORPUSCULAR VOLUME 89 fL (79-100); MONO # 0.5 x10^3/uL (0.0-1.1); MONO % 7 % (0-9); NEUT # 4.6 x10^3/uL (1.8-7.7); NEUT % 64 % (31-73); PLATELET COUNT 225 x10^3/uL (140-400); RED BLOOD COUNT 4.73 x10^6/uL (3.50-5.40); RED CELL DISTRIBUTION WIDTH 13.8 % (11.5-14.5); WHITE BLOOD COUNT 7.1 x10^3/uL (4.0-11.0)
[2020-03-16 14:25] LABS: PROTHROMBIN TIME PATIENT 13.3 SEC (11.7-14.0)
[2020-03-16 14:39] LABS: ALBUMIN 3.9 g/dL (3.4-5.0); C-REACTIVE PROTEIN 2.4 mg/L (0-3.3); CALCIUM 9.2 mg/dL (8.5-10.1); CREATININE 0.8 mg/dL (0.6-1.0); GFR 73.7; POTASSIUM 3.8 mmol/L (3.5-5.1)
[2020-03-17 01:09] LABS: HEMOGLOBIN A1C 5.5 % (4.8-5.6)
== END ==
LOC: SURGPAT 13:42
PROVIDERS: ATTEND Orthopaedic Surgery
DX: Z01.812 Encounter for preprocedural laboratory examination (principal); M17.11 Unilateral primary osteoarthritis, right knee
CPT/HCPCS: 36415; 80048; 82040; 82306; 83036; 85025; 85610; 85730; 86140; 87641

== ENCOUNTER → 2020-04-01 | Outpatient (CLI) | payer OTHER ==
[2019-11-27 09:00] VITALS: BP 95/53
[~2020-04-01] MED LIST changes: +ASPI325T11 PO; +CYCL10TA2 PO; +ONDA4TAB7 PO; +OXYC-325 PO
== END ==
LOC: LAB 14:38
PROVIDERS: ATTEND Orthopaedic Surgery
DX: Z01.812 Encounter for preprocedural laboratory examination (principal); M17.11 Unilateral primary osteoarthritis, right knee; Z20.822 Contact with and (suspected) exposure to COVID-19
CPT/HCPCS: U0003

== ENCOUNTER 2020-04-05 06:18 | Observation (INO) | payer OTHER ==
--- NOTE | 2020-04-03 17:01 | PDOC1 ---
History and Physical Date of Admission Date of Admission 04/05/2020 Identification/Chief Complaint Chief Complaint Right knee osteoarthritis pain Source Source: Chart review, Patient History of Present Illness History of Present Illness This 60-year-old woman has right knee osteoarthritis pain. She had left total knee replacement 3 months ago on 11/25/19. At this point, she states that her left knee is "her good knee". However, her right knee continues to be severely painful and limit her ability to participate in desired activities. Her right knee prevents her from walking for exercise as well as squatting, kneeling, or using stairs. She is unable to go walking with her grandchildren due to knee pain. She took NSAID's and had adverse side effects so she doesn't take any medications. Patient has failed steroid injections and viscosupplementation. She is interested in having her right knee replaced. She is here today for elective right total knee arthroplasty with robotic assist Past Medical History Past Medical History GERD. ADHD. Obesity. Anxiety. Hypercholesterolemia. Depression. Non-toxic uninodular goiter. Past Surgical History Past Surgical History: Total knee replacement Family History Family History: No Significant Social History ALCOHOL: none Current Medications Current Medications Current Medications Fentanyl Citrate (Fentanyl 2ml Vial) 25 mcg PRN Q5MIN PRN IVP MILD PAIN 1-3; Start 04/05/20 at 06:00; Stop 04/06/20 at 05:59 Fentanyl Citrate (Fentanyl 2ml Vial) 50 mcg PRN Q5MIN PRN IVP MODERATE PAIN 4-6; Start 04/05/20 at 06:00; Stop 04/06/20 at 05:59 Morphine Sulfate (Morphine Sulfate) 1 mg PRN Q10MIN PRN IVP SEVERE PAIN 7-10; Start 04/05/20 at 06:00; Stop 04/06/20 at 05:59 Ringer's Solution 1,000 ml @ 30 mls/hr Q24H IV ; Start 04/05/20 at 06:00; Stop 04/05/20 at 17:59 Hydromorphone HCl (Dilaudid) 0.5 mg PRN Q10MIN PRN IVP SEVERE PAIN 7-10, 2nd CHOICE; Start 04/05/20 at 06:00; Stop 04/06/20 at 05:59 Prochlorperazine Edisylate (Compazine) 5 mg PACU PRN PRN IVP NAUSEA, MRX1; Start 04/05/20 at 06:00; Stop 04/06/20 at 05:59 Active Scripts Active Reported Vitamin D3 (Cholecalciferol (Vitamin D3)) 250 Mcg Capsule 250 Mcg PO DAILY Crestor (Rosuvastatin Calcium) 5 Mg Tablet 10 Mg PO HS Paxil (Paroxetine Hcl) 20 Mg Tablet 20 Mg PO DAILY Clonazepam (Clonazepam) 0.5 Mg Tablet 0.5 Mg PO BID Bystolic (Nebivolol) 5 Mg Tablet 5 Mg PO DAILY Adderall 30 Mg Tablet (Dextroamphetamine/Amphetamine) 30 Mg Tablet 30 Mg PO DAILY Allergies Allergies: Coded Allergies: No Known Drug Allergies (Unverified , 11/25/19) ROS Review of System OPHTHALMOLOGY: Blurred vision none. Double vision denies. Change in vision none. ENT: Hearing loss none. Change in voice denies. Rhinorrhea none. CARDIOLOGY: Palpitations none. Shortness of breath denies. Chest pain denies. CONSTITUTIONAL: Fever denies. Chills denies. Weight gain denies. Weakness none. weight loss denies. Fatigue none. GASTROENTEROLOGY: Diarrhea denies. Vomiting none. Dysphagia none. UROLOGY: Voiding normally yes. Hematuria none. MUSCULOSKELETAL: Chronic back or neck pain denies. Swelling of the feet, hands, ankles and /or legs Bilateral Knee swelling and left foot swelling.. Joint pain Bilateral Knee pain, Left back heel pain.. DERMATOLOGY: Rash denies. Lumps none. NEUROLOGY: Dizziness/lightheadedness denies. Double vision, temporary blindness den ies. Tingling/numbness none. PSYCHOLOGY: Change in mood or personality admits. Memory loss none. ENDOCRINOLOGY: Obesity denies. Fatigue none. Weight loss none. HEMATOLOGY/LYMPH: Hepatitis denies. Enlarged lymph nodes denies. Physical Exam General: Alert, Cooperative HEENT: Atraumatic Lungs: Normal air movement Heart: RRR Abdomen: Soft Extremities: Other (The RIGHT knee shows a mildly antalgic gait. There is varus alignment. No masses. No detectable effusion. Tenderness on the joint lines. Range of motion is 0-125 degrees. There is crepitus with range of motion, and pain at the extremes of motion. The knee is stable to varus and valgus stress without subluxation or laxity. Muscle strength is slightly weak for the quadriceps 4+/5 which may be due to pain or avoidance, and does not seem neurogenic, and the muscle tone and bulk is slightly decreased. The hamstring strength is 5/5. The skin is normal with no scars, rashes, lesions or ulcers. Light touch sensation is intact. No edema and no varicosities. Dorsalis pedis pulse is intact and capillary refill is normal.) Images Images [facility] [address] [place] [address] IMAGING REPORT Signed PATIENT: AMANDA CHUNG ACCOUNT: [id number] : 1960 LOCATION: [facility] AGE: 59 SEX: F EXAM STATUS: PRE CLI ORD. PHYSICIAN: SAKINA TOLEDO MD REASON: PROCEDURE: KNEE BILAT 2V EXAM: KNEE BILAT 2V, KNEE STANDING BILAT AP. HISTORY: Bilateral knee pain. COMPARISON: None. FINDINGS: No fractures are identified bilaterally. The medial compartmental joint spaces are moderately to severely narrowed on the left greater than right. There is bilateral mild varus angulation and lateral subluxation of the tibias. There is moderate osteophytosis along all 3 compartments. There are small to moderate joint effusions bilaterally. IMPRESSION: 1. Moderate to severe medial compartment predominant osteoarthritis on the left greater than right with varus angulation. Electronically signed by: Marycarmen Faulkner MD (09/22/2019 4:22 PM) [id number] DICTATED and SIGNED BY: YEMI FAULKNER MD DATE: 09/22/19 1622 VTE Prophylaxis Ordered VTE Prophylaxis Devices: Yes VTE Pharmacological Prophylaxi: Yes Assessment/Plan Assessment/Plan She has osteoarthritis of her right knee with knee pain and limitations of activity. We reviewed her previous x-rays together and discussed the natural history of the condition as well as the risks, benefits, and alternatives to treatment. Given her failure of more conservative measures with continued severe pain and loss of function, my recommendation is knee replacement. Plan for right total knee arthroplasty. We discussed the potential risks of infection, neurovascular injury, fracture, bleeding, blood clots, malalignment, need for revision surgery, or other potential surgical or anesthetic complications. I re commended the robotic NAVIO instrumentation and we discussed my reasoning. We also discussed postoperative treatment and expectations including dental antibiotic prophylaxis and residual numbness over the knee. All of her questions were answered and she desires to proceed with total knee replacement. She is here today for elective right total knee arthroplasty with robotic assistance. The left knee has a Journey 2, size 3 Oxinium femur, size 3 tibia, 12 mm constrained polyethylene, and 29 mm oval patella. Justifications for Admission Other Justification SAKINA TOLEDO MD Apr 03, 2020 17:01
[2020-04-05] VITALS (9 sets, daily range): BP systolic 91–126; BP diastolic 49–75
[~2020-04-05] VITALS: Ht 157.5 cm; Wt 110.7 kg
[2020-04-05] MEDS: KETOROLAC 30MG VIAL 30 MG, BUPIVACAINE MPF 0.25% 20 ML, EPINEPHrine 0.5 MG in TOTAL VOL... INT ART SCH ×2 (03:25→18:22)
[~2020-04-05 06:18] MED LIST changes: -ASPI325T11 PO; -CYCL10TA2 PO; +HYDROmorphone 2 MG/ML VIAL IVP PRN; +IV RINGERS,LACTATED 1000ML 1,000 ML IV SCH; +MORPHINE SULFATE 2 MG/ML VIAL. IVP PRN; +MORPHINE SULFATE 5 MG, KETOROLAC 30MG VIAL 30 MG, ROPIVacaine 0.5% PF 60 ML, EPINEPHrin... INT ART ONE; -ONDA4TAB7 PO; -OXYC-325 PO; +PROCHLORPERAZINE 10 MG/2 ML VIAL. IVP PRN; +TRANEXAMIC ACID in NS IVPB 50 ML INJ ONE; +fentaNYL PF VIAL 100 MCG/2 ML VIAL IVP PRN
[2020-04-05] MEDS ORDERED: LIDOCAINE 2% PF 5 ML VIAL. ONE (06:19)
[2020-04-05] MEDS ORDERED: PROPOFOL 10 MG/ML (20ML) VIAL. IV ONE (06:19)
[2020-04-05] MEDS: CELECOXIB 100 MG CAPSULE. PO SCH (06:46)
[2020-04-05] MEDS ORDERED: TOBRAMYCIN POWDER 1.2 GM VIAL. ONE (06:55)
[2020-04-05] MEDS ORDERED: VANCOMYCIN 1 GM VIAL. ONE ×2 (06:55→06:56)
[2020-04-05] MEDS ORDERED: ACETAMINOPHEN 500 MG TABLET PO ONE (07:00)
[2020-04-05] MEDS ORDERED: TRANEXAMIC ACID in NS IVPB 50 ML ONE ×2 (07:11→07:24)
[2020-04-05] MEDS ORDERED: ePHEDrine PF IN SALINE 50 MG/10 ML SYRINGE. IV ONE (07:24)
[2020-04-05] MEDS ORDERED: ONDANSETRON PF 4 MG/2 ML VIAL. ONE (07:29)
[2020-04-05] MEDS ORDERED: DEXAMETHASONE SOD PHOS 4 MG/ML VIAL ONE (07:29)
[2020-04-05] MEDS ORDERED: SEVOFLURANE > 120 MINUTES. IH ONE (07:29)
[2020-04-05] MEDS ORDERED: KETOROLAC 30 MG/ML VIAL. ONE (07:29)
[2020-04-05] MEDS ORDERED: TRANEXAMIC ACID in NS IVPB 50 ML INJ ONE (08:00)
[2020-04-05] MEDS ORDERED: fentaNYL PF VIAL 100 MCG/2 ML VIAL ONE ×3 (08:49→10:32)
--- NOTE | 2020-04-05 09:26 | PDOC4 ---
Operative Note Operative Note Date of Procedure: April 05, 2020 Pre-Op Diagnosis: Unilateral primary osteoarthritis, right knee. M17.11 Post-Op Diagnosis: same Procedure: right total knee arthroplasty with patella resurfacing, robotic assisted, CPT 68469 Surgeon: Sakina Ying MD Live Truck Technician: AFSHAN Reddy Anesthesia: General EBL: 100 mL Specimens Obtained: right knee bone and soft tissue Complications: none Drains: Hemovac plus pain catheter Tourniquet time: 59 Minutes Tourniquet Pressure: 300 mm Hg Indications for Procedure: Knee arthritis pain, affecting quality of life, unrelieved by nonoperative management Findings: Severe osteoarthritis with bone on bone contact medially, and at the patellofemoral joint with full thickness cartilage loss in the lateral compartment and tricompartmental osteophytes greatest medially Implants: Preciado & Nephew Journey II Total Knee System, Size 3 right bicruciate stabilized Journey II BCS Oxinium femoral component, size 2 right Journey nonporous tibial baseplate, size 1-2 10 mm right Journey II BCS constrained articular insert, 29 mm oval Marlin II resurfacing patellar component Procedure in Detail: The patient was identified in the preoperative holding area, and the correct right lower extremity was marked by me. The patient was taken to the operating room where the patient was anesthetized by the Department of Anesthesia. Preoperative antibiotics were given intravenously. Tranexamic acid 1 g was given intravenously for intraoperative hemostasis. A "time-out" procedure was performed. The patient was positioned supine on the operative table with a tourniquet on the upper right thigh. A right hip bump and heel bump were attached to the operating table for later intraoperative positioning. The right lower limb was thoroughly scrubbed, then sterile Chloraprep solution was applied, and the limb was draped in sterile fashion. The operating team wore exhaust ventilated hoods with [employer] Personal Protection Toga Zippered Peel-Away protection system. An impervious stockinet and an adhesive drape were used such that the skin was entirely covered. The limb was exsanguinated with an Esmarch bandage, and the tourniquet was inflated. A midline skin incision was made with a scalpel using the patella and tibial tubercle as landmarks. Electrocautery was used for hemostasis. My assistant manager bilingual used rake retractors and a laparotomy sponge. A medial parapatellar arthrotomy incision was used with extension into the distal quadriceps tendon. The patella was retracted laterally and Hohmann retractors were now used by my assistant manager bilingual. Excess synovium, the menisci, and the cruciate ligaments were resected sharply. A periarticular multimodal ropivacaine anesthetic injection was used in the suprapatellar pouch and distal quadriceps muscle. The patella was everted and exposed. The patella thickness was measured with a caliper, and then cut freehand with a saw, using caliper measurements to assess the resection. The lateral retinaculum was partially released from the lateral patella using electrocautery. Rongeurs were used to make sure there were no remaining exposed patellar osteophytes medially or laterally. The patella was sized, and then drilled for an oval three-peg patella component. The tibial tracker array for the CORI system was applied to the tibial crest four finger breadths below the tibial tubercle, using percutaneous incisions and bicortical pins. The femoral tracker array was applied outside of the original incision using two separate stab incisions using bicortical pins. Checkpoint verification pins were applied to the femur and tibia. Using the point probe, the medial and lateral malleoli were localized and the locations were stored. The center of the tibia was noted at the anterior cruciate ligament insertion and stored. The center of the femur was marked at the intersection of Whitesidess line with the transepicondylar axis. The hip center calculation was performed with range of motion of the hip. The femur neutral position was identified, and simulated weightbearing was performed with axial compression on the foot. Range of motion without stress was performed and the data collected. Range of motion with valgus stress, and range of motion with varus stress data collection was also performed. Rotational references include the Whitesidess line, and the trans-epicondylar axis. The femoral articular surface was now mapped in 3 dimensions using the point probe and digital data collected. The tibial condyle articular surfaces and cortical edges were mapped in 3 dimensions using the point probe including the medial and lateral tibial plateau. Implant planning was now performed on-screen with manipulation of the implant sizes, cut thicknesses and gaps, component rotation, component flexion/extension and component varus/valgus until satisfactory ligament balance, alignment and stability of the knee was expected throughout the range of motion. No additional releases were required. My assistant manager bilingual held a Hohmann retractor, a medial Z-retractor, and an [employer] retractor to protect the medial and lateral collateral ligaments, the patellar tendon, the skin and the other soft tissues. The point probe was used to confirm the location of the checkpoint verification pins. The distal femoral surface was now prepared using CORI handpiece for bone removal to the previously planned distal femoral resection. The crosshairs at the pin locations were marked by using a mallet and the point probe for definitive location. A 5-in-1 Journey II cutting guide was then applied and the position was checked with the virtual gabriel wing from the CORI to ensure proper placement as the pins were applied. The posterior, anterior, and all chamfer cuts were made with the oscillating saw. Excess bone was removed with an osteotome and rongeurs. The tibial cutting guide was applied, positioned using the CORI virtual gabriel wing, and secured to the upper tibia using three pins at the previously planned location. The virtual gabriel wing was used to confirm the resection depth, slope and coronal alignment. The upper tibia was cut made with an oscillating saw. My assistant manager bilingual held Hohmann retractors and a posterior cruciate ligament retractor to protect the medial and lateral collateral ligaments, the patellar tendon, the skin, the peroneal nerve and the other soft tissues. The upper tibia was sized with a trial baseplate. The posterior compartment was cleared of osteophytes and loose bodies. The periarticular anesthetic injection was used in the posterior compartment. The box cut for a posterior stabilized component was made. A preliminary reduction was performed with a trial femur, trial tibial baseplate and trial polyethylene. The CORI system was used to confirm range of motion, and postoperative stressed gap assessment. The stability was assessed using different thicknesses of tibial articular surface to find satisfactory stability and good range of motion. The rotation of the tibial component was marked on the upper tibia. Final trial reduction was now performed verifying patella tracking and tibiofemoral stability and alignment. The bone pins and tracker arrays were removed, and the checkpoint verification pins were removed. The tibia preparation was completed with a drill, saw, and fin punch at the previously noted rotation. The final implants were verified and opened. Outer gloves were changed by the operating team. Betadine lavage was used. The bone cuts were irrigated with saline using the Microbion InterPulse device and then dried with suction and laparotomy sponges. Two packages of Preciado + Nephew Rally HV bone cement were mixed in powdered form with Vancomycin 1gm and Tobramycin 1.2 gm, and then vacuum-mixed with the monomer, and placed into a cement gun. The cut surfaces of the bone were thoroughly dried with suction and with laparotomy sponges for cement interdigitation. The final components were cemented into place. The knee was kept at full extension while the cement hardened, and excess cement was removed. Tranexamic acid 1 g was redosed intravenously for additional intraoperative hemostasis. The tourniquet was released, and electrocautery was used for hemostasis. A final periarticular anesthetic injection was used for pain relief. The single bone pin site on the tibial crest was closed with #3-0 Nylon sutures. A final check of [id number] and stability was made, and the polyethylene implant final size was chosen. The polyethylene implant was secured to the tibial baseplate, and the knee was reduced a final time and range of motion and stability was confirmed. Thorough irrigation was used. A pain catheter, and a 10 Fr Hemovac were inserted. Topical Vancomycin 1 gm was used during the closure. The arthrotomy was closed with interrupted [id number] #1 Vicryl suture. The subcutaneous tissues were approximated initially with #2-0 Vicryl inverted interrupted sutures by my assistant manager bilingual. Next the subcuticular layer was approximated in a running fashion with #3-0 STRATAFIX suture by my assistant manager bilingual. The skin incision was then covered and reinforced by my assistant manager bilingual with Acticoat, followed by a BROOKE single use negative pressure wound therapy dressing Soft roll and an Brian wrap were applied. Needle and sponge counts were correct. There were no apparent complications. The patient returned to the recovery room in stable condition. SAKINA YING MD Apr 05, 2020 09:26
[2020-04-05] MEDS ORDERED: PROCHLORPERAZINE 5 MG TABLET. PO PRN (09:30)
[2020-04-05] MEDS ORDERED: diphenhydrAMINE 50 MG/ML VIAL IVP PRN (09:30)
[2020-04-05] MEDS ORDERED: CALCIUM CARBONATE 500 MG TAB.CHEW PO PRN (09:30)
[2020-04-05] MEDS ORDERED: DEXTROSE 50% 25 GM / 50ML DISP.SYRIN. IV PRN (09:30)
[2020-04-05] MEDS ORDERED: oxyCODONE/APAP 5/325 1 TAB TABLET PO PRN (09:30)
[2020-04-05] MEDS ORDERED: ZOLPIDEM 5 MG TABLET. PO PRN (09:30)
[2020-04-05] MEDS ORDERED: 0.9 % SODIUM CHLORIDE 10 ML DISP.SYRIN. IV PRN (09:30)
[2020-04-05] MEDS: fentaNYL PF VIAL 100 MCG/2 ML VIAL IVP PRN ×5 (09:58→14:38)
[2020-04-05] MEDS: IV NORMAL SALINE 1000ML BAG 1,000 ML IV SCH (10:00)
--- NOTE | 2020-04-05 10:39 | RAD ---
Exam Date: 04/05/2020 10:02 AM XR KNEE_RT 1-2 VIEWS Indication: Reason: POST OP RT KNEE ARTHROPLASTY / Spl. Instructions: / History: FINDINGS: Status post total knee arthroplasty with patella resurfacing. No evidence for hardware fa ilure, loosening, acute fracture, or dislocation. Alignment is anatomic. Soft tissue air is consis tent with recent postoperative state. IMPRESSION: Status post total knee arthroplasty as above. Electronically signed by: Adam Gasca MD (04/05/2020 10:37 AM) [id number]
--- NOTE | 2020-04-05 11:00 | NUR ---
received from recovery. at bedside. she is rating her pain a "2" upon admission. Hemovac intact. iac intact. she has good pulses, motion and strength bilateral lower extremities. states she has some numbness in left knee area from previous knee surgery.
[2020-04-05] MEDS: ONDANSETRON ODT 4 MG TAB.RAPDIS. PO SCH ×2 (12:00→18:00)
[2020-04-05] MEDS: ONDANSETRON PF 4 MG/2 ML VIAL. IVP SCH ×2 (14:38→18:00)
--- NOTE | 2020-04-05 15:20 | NUR ---
ambulated to the bathroom; voided large amount. medicated with fentanyl for increase in pain. up in recliner. at bedside.
[2020-04-05] MEDS: MORPHINE SULFATE 4 MG/ML VIAL. IVP PRN ×2 (18:58→22:23)
--- NOTE | 2020-04-05 19:42 | NUR ---
iac -unable to infuse medication. given morphine iv for pain rated "5"
[2020-04-05] MEDS: ASPIRIN ENTERIC COATED 325 MG TABLET.DR. PO SCH (20:58)
[2020-04-05] MEDS: ATORVASTATIN CALCIUM 40 MG TABLET. PO SCH (20:58)
[2020-04-05] MEDS: clonazePAM 0.5 MG TABLET PO SCH (20:59)
[2020-04-05] MEDS: METOPROLOL TART IMMED RELEASE 25 MG TABLET. PO SCH (20:59)
[2020-04-06] MEDS: ONDANSETRON PF 4 MG/2 ML VIAL. IVP SCH ×2 (00:15→05:47)
[2020-04-06] MEDS: ONDANSETRON ODT 4 MG TAB.RAPDIS. PO SCH ×3 (00:16→05:47)
[2020-04-06] MEDS: oxyCODONE/APAP 5/325 1 TAB TABLET PO PRN ×5 (01:03→20:54)
[2020-04-06] MEDS: MORPHINE SULFATE 4 MG/ML VIAL. IVP PRN ×3 (02:50→06:47)
[2020-04-06 02:54] VITALS: BP 118/71
[2020-04-06] MEDS: KETOROLAC 30MG VIAL 30 MG, BUPIVACAINE MPF 0.25% 20 ML, EPINEPHrine 0.5 MG in TOTAL VOL... INT ART SCH ×2 (03:08→03:49)
--- NOTE | 2020-04-06 03:50 | NUR ---
Attempted to re infuse 1800 IAC R/T Patient increase in pain. After attempting multiple times unable to infuse IAC. Blood noted backed up into IAC tubing. Holding 0600 IAC infusion due to inability to infuse IAC.
[2020-04-06] MEDS ORDERED: MAGNESIUM HYDROXIDE 2,400 MG/30 ML ORAL.SUSP. PO PRN (06:00)
[2020-04-06 06:48] VITALS: BP 114/75
--- NOTE | 2020-04-06 08:00 | NUR ---
awake and tearful. states she is in so much pain. was given morphine at 0645 and it didt really help. was given percocet an hr prior to that.
[2020-04-06] MEDS: METOCLOPRAMIDE HCL 10 MG/2 ML VIAL. IVP PRN ×2 (08:43→08:48)
--- NOTE | 2020-04-06 08:45 | NUR ---
medicated with fentanyl for the pain and reglan for the nausea. she is eating breakfast.. am medications given.
[2020-04-06] MEDS: PARoxetine 20 MG TABLET PO SCH (08:46)
[2020-04-06] MEDS: SENNOSIDES/DOCUSATE 8.6/50MG TABLET. PO SCH (08:46)
[2020-04-06] MEDS: CELECOXIB 100 MG CAPSULE. PO SCH ×2 (08:46→09:00)
[2020-04-06] MEDS: CHOLECALCIFEROL (VITAMIN D3) 1,000 UNIT TABLET PO SCH (08:46)
[2020-04-06] MEDS: fentaNYL PF VIAL 100 MCG/2 ML VIAL IVP PRN ×4 (08:46→23:56)
[2020-04-06] MEDS: ASPIRIN ENTERIC COATED 325 MG TABLET.DR. PO SCH ×2 (08:46→20:53)
[2020-04-06] MEDS: clonazePAM 0.5 MG TABLET PO SCH ×2 (08:46→20:53)
[2020-04-06] MEDS: METOPROLOL TART IMMED RELEASE 25 MG TABLET. PO SCH ×2 (08:47→20:54)
[2020-04-06] MEDS: MULTIVITAMIN with MINERAL TABLET. PO SCH (08:48)
[2020-04-06] MEDS ORDERED: NON FORMULARY ITEM (Dextroamphetamine/Amphetamine (Adderall 30 Mg Tablet) 30 MG) PO SCH (09:00)
--- NOTE | 2020-04-06 09:30 | NUR ---
dozes. resp easy. awakened for am care. states pain is down to a 6. continue to monitor.
[2020-04-06] MEDS: IV NORMAL SALINE 1000ML BAG 1,000 ML IV SCH (10:00)
--- NOTE | 2020-04-06 10:57 | NUR ---
in therapy. states the fentanyl helped. pain is tolerable at this time.
[2020-04-06] MEDS ORDERED: ONDANSETRON ODT 4 MG TAB.RAPDIS. PO PRN (12:00)
[2020-04-06] MEDS ORDERED: ONDANSETRON PF 4 MG/2 ML VIAL. IVP PRN (12:00)
--- NOTE | 2020-04-06 12:30 | NUR ---
completed lunch. pain suddenly shot up to an "8" medicated with iv pain med.
--- NOTE | 2020-04-06 12:46 | PDOC ---
PROGRESS NOTES Date of Service DATE: 04/06/20 TIME: 12:45 Subjective Subjective Doing well, but still requiring IV pain meds for pain, in addition to oral meds. Objective Vital Signs Vital Signs Date Time Temp Pulse Resp B/P (MAP) Pulse Ox O2 Delivery O2 Flow Rate FiO2 04/06/20 11:29 Room Air 04/06/20 09:15 18 04/06/20 08:47 63 114/75 04/06/20 06:48 98.5 97 98.5 04/05/20 13:30 1.0 Physical Exam BROOKE dressing working. BROOKE has spots of bloody drainage. Calf soft and NT. Homans neg. Able to DF and plantarflex foot with no evidence of neurovascular injury nor compartment syndrome. No blisters. Minimal erythema. Moderate swelling as expected. Imaging Postop x-rays and report reviewed by me. Satisfactory TKA without apparent complications. PATIENT: AMANDA CHUNG ACCOUNT: [id number] : 1960 LOCATION: [address] [place] [address] AGE: 60 SEX: F EXAM STATUS: ADM IN ORD. PHYSICIAN: SAKINA TOLEDO MD REASON: POST OP RT KNEE ARTHROPLASTY PROCEDURE: KNEE RIGHT 2V Exam Date: 04/05/2020 10:02 AM XR KNEE_RT 1-2 VIEWS Indication: Reason: POST OP RT KNEE ARTHROPLASTY / Spl. Instructions: / History: FINDINGS: Status post total knee arthroplasty with patella resurfacing. No evidence for hardware failure, loosening, acute fracture, or dislocation. Alignment is anatomic. Soft tissue air is consistent with recent postoperative state. IMPRESSION: Status post total knee arthroplasty as above. Electronically signed by: Bird Gasca MD (04/05/2020 10:37 AM) [id number] DICTATED and SIGNED BY: BIRD GASCA MD DATE: 04/05/20 [id number] 0 Assessment Assessment POD 1 after TKA Plan Plan of Care Needs to stay in hospital for pain control at this time. Continue DVT prophylaxis and PT. Discharge planning. Justicifation of Admission Dx: Justifications for Admission: Justification of Admission Dx: Yes SAKINA TOLEDO MD Apr 06, 2020 12:46
[2020-04-06] MEDS ORDERED: BISACODYL 10 MG SUPP.RECT. PR PRN (16:00)
--- NOTE | 2020-04-06 16:00 | NUR ---
completed 2nd rehab session; tolerated fair. original surgical dressing removed. IAC and Hemovac removed. BROOKE dressing on the lower third is saturated. removed. cleansed with chlor prep then new brooke dressing applied. tolerated fair.
[2020-04-06 18:26] VITALS: BP 105/55
[2020-04-06] MEDS: ATORVASTATIN CALCIUM 40 MG TABLET. PO SCH (20:53)
[2020-04-07] MEDS: oxyCODONE/APAP 5/325 1 TAB TABLET PO PRN ×3 (05:41→14:26)
[2020-04-07 05:50] VITALS: BP 116/73
[2020-04-07] MEDS: fentaNYL PF VIAL 100 MCG/2 ML VIAL IVP PRN (06:26)
--- NOTE | 2020-04-07 06:32 | NUR ---
Patient has been c/o high pain levels and requested 2 doses of Percocet and 3 doses of Fentanyl this shift. Patient has rested quietlyeyes closed post medications. Continues to wear CPAP while sleeping. VSS.
[2020-04-07] MEDS: CHOLECALCIFEROL (VITAMIN D3) 1,000 UNIT TABLET PO SCH (08:29)
[2020-04-07] MEDS: ASPIRIN ENTERIC COATED 325 MG TABLET.DR. PO SCH (08:29)
[2020-04-07] MEDS: CELECOXIB 100 MG CAPSULE. PO SCH (08:29)
[2020-04-07] MEDS: SENNOSIDES/DOCUSATE 8.6/50MG TABLET. PO SCH (08:29)
[2020-04-07] MEDS: MULTIVITAMIN with MINERAL TABLET. PO SCH (08:30)
[2020-04-07] MEDS: clonazePAM 0.5 MG TABLET PO SCH (08:30)
[2020-04-07] MEDS: METOPROLOL TART IMMED RELEASE 25 MG TABLET. PO SCH (08:33)
[2020-04-07] MEDS: PARoxetine 20 MG TABLET PO SCH (08:33)
[2020-04-07] MEDS ORDERED: CYCLOBENZAPRINE 10 MG TABLET. PO PRN (09:00)
[2020-04-07 11:40] LABS: HEMATOCRIT 33.8 % (36.0-47.0); HEMOGLOBIN 11.3 g/dL (12.0-15.5)
[2020-04-07 14:49] VITALS: BP 101/59
--- NOTE | 2020-04-07 15:09 | PATHOLOGY ---
[facility] Accession Number: [id number] . 01 Material submitted: . knee - RIGHT KNEE BONE AND TISSUE. Modifiers: right . 01 Clinical history: . RIGHT TRA . 02 Diagnosis: Segments of bone and soft tissue, right total knee arthroplasty: - Focally advanced degenerative arthritis. (JPM/db; 04/07/2020) LBQ 04/07/2020 1215 Local . 02 Electronically signed: . Yaw Castillo MD, Pathologist NPI- [id number] . 01 Gross description: . The specimen is received in formalin, labeled "Bina Thao, right knee bone and tissue". Received are multiple segments of bone, including the tibial plateau, admixed with soft tissue measuring 9.8 x 7.4 x 2.5 cm in aggregate dimensions. Meniscus is present. The articular surfaces are smooth to granular in appearance with evidence of eburnation. The specimen is submitted representatively in cassette A1, following decalcification. (CAA; 04/06/2020) QAC/QAC 04/06/2020 1127 Local . 02 Pathologist provided ICD-10: M17.11 . 02 CPT . 819400, [id number] Specimen Comment: A courtesy copy of this report has been sent to [phone] Specimen Comment: Report sent to / Performed at: 01 [facility] [address], [place] [id number] MD Bryan Oconnell MD Phone: [phone] Performed at: 02 [facility] [address] [place], [place] [id number] MD Yaw Castillo MD Phone: [phone]
--- NOTE | 2020-04-07 17:29 | PDOC3 ---
Discharge Summary Visit Information Date of Admission: Apr 05, 2020 Date of Discharge: Apr 07, 2020 Final Diagnosis Osteoarthritis right knee Brief Hospital Course Allergies Allergies Coded Allergies Type Severity Reaction Last Updated Verified No Known Drug Allergies 04/05/20 No Vital Signs Vital Signs Date Time Temp Pulse Resp B/P (MAP) Pulse Ox O2 Delivery O2 Flow Rate FiO2 04/07/20 15:26 95 Room Air 04/07/20 14:49 98.8 72 20 101/59 (73) 98.8 Lab Results Laboratory Tests Test 04/07/20 10:51 Hemoglobin 11.3 g/dL (12.0-15.5) Hematocrit 33.8 % (36.0-47.0) Mean Corpuscular Hemoglobin Concent 34 g/dL (31-37) Laboratory Tests Test 04/07/20 10:51 Hemoglobin 11.3 g/dL (12.0-15.5) Hematocrit 33.8 % (36.0-47.0) Mean Corpuscular Hemoglobin Concent 34 g/dL (31-37) Brief Hospital Course 60 year old who presented with knee osteoarthritis, for elective total knee art hroplasty. The patient underwent total knee arthroplasty under general anesthesia the day of admission. Perioperative antibiotics and DVT prophylaxis were used. Postoperatively physical therapy and case management were consulted. The patient progressed and is stable for discharge. Discharge Information Condition at Discharge: Stable Follow Up: Weeks Disposition/Orders: D/C to Home Scheduled Cholecalciferol (Vitamin D3) (Vitamin D3), 250 MCG PO DAILY, (Reported) Clonazepam (Clonazepam ), 0.5 MG PO BID, (Reported) Dextroamphetamine/Amphetamine (Adderall 30 Mg Tablet), 30 MG PO DAILY, (Reported) Nebivolol Hcl (Bystolic), 5 MG PO DAILY, (Reported) Paroxetine Hcl (Paxil), 20 MG PO DAILY, (Reported) Rosuvastatin Calcium (Crestor), 10 MG PO HS, (Reported) Patient Instructions Patient Instructions Continue to weight bearing as tolerated with walker. Keep BROOKE dressing intact and dry. Cut off BROOKE "tail" and throw away battery pack on the 7th day after s urgery. Tape down BROOKE tail Leave BROOKE dressing intact otherwise. Follow up with Dr. Ying's office Sunday. Call for appointment unless already scheduled. Continue enteric coated aspirin 325 mg by mouth twice a day for 30 days to prevent blood clots. Justicifation of Admission Dx: Justifications for Admission: Justification of Admission Dx: Yes SAKINA YING MD Apr 07, 2020 17:29
[2020-04-07] MEDS ORDERED: OXYC-325 PO (17:37)
[2020-04-07] MEDS ORDERED: ASPI325T11 PO (17:37)
[2020-04-07] MEDS ORDERED: CYCL10TA2 PO (17:38)
[2020-04-07] MEDS ORDERED: ONDA4TAB7 PO (17:38)
--- NOTE | 2020-04-07 18:01 | NUR ---
Patient left with her around 1800. Discharge education completed by the medical team prior to dismissal. BROOKE was not changed per doctors order since only a small amount of bloody drainage was present and the dressing was changed yesterday. IV discontinued without complications. Scripts for percocet, flexeril, and zofran sent to the pharmacy per Dr Ying. No concerns noted at discharge.
== END 2020-04-07 18:05 | disposition home or self-care (01) ==
LOC: SURG 06:18 → 4 SOUTHEST 09:28
PROVIDERS: ADMIT Orthopaedic Surgery; ATTEND Orthopaedic Surgery
DX: M17.11 Unilateral primary osteoarthritis, right knee (principal); K21.9 Gastro-esophageal reflux disease without esophagitis; F90.9 Attention-deficit hyperactivity disorder, unspecified type; E66.9 Obesity, unspecified; F41.9 Anxiety disorder, unspecified; E78.00 Pure hypercholesterolemia, unspecified; F32.9 Major depressive disorder, single episode, unspecified; E04.1 Nontoxic single thyroid nodule; Z96.652 Presence of left artificial knee joint; Z68.41 Body mass index [BMI] 40.0-44.9, adult
CPT/HCPCS: 27447; 36415; 73560; 85014; 85018; 86850; 86900; 86901; 88304; 88311; 96361; 96365; 96366; 96375; 96376; 97110; 97116; 97150; 97162; 97166; 97530; 97535; A4213; A4628; A4930; A6253; A6258; A6450; C1713; C1755; C1776; G0378; G0379; J0171; J0690; J1100; J1885; J2270; J2405; J2704; J2765; J2795; J3010; J3260; J3370; J7030; J3490